=== PATIENT | male | born 1950 | race Caucasian/White ===

== ENCOUNTER 2018-08-29 06:49 | Inpatient (IN) | payer MEDICARE, OTHER, SELFPAY ==
[2018-08-29 07:39] LABS: ALT (SGPT) 25 U/L (8-55); AST (SGOT) 36 U/L (5-34); Albumin 3.2 g/dL (3.4-4.8); Alkaline Phosphatase 57 U/L (40-150); Anion Gap 16 mmol/L (10-20); BUN (Urea Nitrogen) 47 mg/dL (8.4-25.7); Bilirubin, Total 1.5 mg/dL (0.2-1.2); Calc. Creatinine Clearance 0 mL/min (70-130); Calcium 8.3 mg/dL (7.8-10.44); Carbon Dioxide 16 mmol/L (23-31); Chloride 109 mmol/L (98-107); Estimated GFR-MDRD 33; Globulin 3.7 g/dL (2.4-3.5); Glucose 138 mg/dL (80-115); Potassium 4.3 mmol/L (3.5-5.1); Protein, Total 6.9 g/dL (5.8-8.1); Sodium 137 mmol/L (136-145)
--- NOTE | 2018-08-29 07:45 | RAD ---
RADIOGRAPH CHEST 1 VIEW: DATE: 08/29/2018 TIME: 7:24 AM HISTORY: 68-year-old male with dyspnea COMPARISON: 12/04/2015 FINDINGS: Hypoinflated lungs. New finding of diffuse bilateral pulmonary interstitial edema. Central pulmonary airspace densities, possibly pulmonary alveolar edema. No pneumothorax. Probable left pleural effusion. Left lower lobe consolidation. IMPRESSION: 1. Evidence for congestive heart failure: Pulmonary edema. 2. Airspace densities at right perihilar and left base. Probably pulmonary alveolar edema. Atelectasi s versus pneumonia are the other possibilities.
[2018-08-29 07:49] LABS: #Basophils 0.1 thou/uL (0.0-0.2); #Eosinphils 0.1 thou/uL (0.0-0.7); #Lymphocytes 0.5 thou/uL (1.20-3.40); #Monocytes 0.5 thou/uL (0.11-0.59); #Neutrophils 3.8 thou/uL (1.40-6.50); %Basophils 1.1 % (0.0-1.0); %Eosinophils 1.9 % (0.0-10.0); %Monocytes 9.5 % (0.0-10.0); %Neutrophils 77.6 % (42.0-75.0); Hemoglobin 6.3 g/dL (14.0-18.0); Hypochromia SLIGHT = 6-15 cells (100X) (0-5/hpf); MDiff Complete? YES; Mean Corpuscular HGB CONC 30.1 g/dL (32.0-36.0); Mean Corpuscular Hemoglobin 20.2 pg (27.0-31.0); Mean Corpuscular Volume 67.2 fL (78.0-98.0); Mean Platelet Volume 8.1 fL (7.4-10.4); Microcytosis SLIGHT = 6-15 cells (100X) (0-5/hpf); Platelet Count 97 thou/uL (130-400); Platelet Morphology Comment Appears Decreased; RBC Distribution Width 16.1 % (11.5-14.5); Red Blood Cell (RBC) Count 3.13 mill/uL (4.70-6.10); Schistocytes SLIGHT = 2-5 cells (100X) (0-1/hpf); White Blood Cell (WBC) Count 4.9 thou/uL (4.8-10.8)
[2018-08-29] MEDS ORDERED: cefTRIAXone\\ROCEPHIN 2 GM VIAL ONE (08:03)
[2018-08-29] MEDS ORDERED: Aspirin Chewable 81 MG TAB ONE (08:04)
[2018-08-29] MEDS ORDERED: Pantoprazole 40 MG VIAL ONE (08:41)
[2018-08-29] MEDS ORDERED: Pantoprazole 40 MG VIAL IVP SCH (09:00)
[2018-08-29] MEDS ORDERED: Azithromycin 500 MG VIAL ONE (09:04)
[2018-08-29] MEDS ORDERED: Pantoprazole 80 MG in Sodium Chloride 0.9% 100 ML IVP SCH (09:15)
[2018-08-29] MEDS ORDERED: Acetaminophen 325 MG TAB PO PRN (10:26)
[2018-08-29] MEDS ORDERED: Ondansetron PF 4 MG/2 ML Vial IVP PRN ×2 (10:26→10:52)
[2018-08-29] MEDS ORDERED: Ondansetron ODT 4 MG TAB SL PRN (10:26)
[2018-08-29] MEDS ORDERED: Sodium Chloride 0.9% 1,000 ML IV SCH (10:52)
[2018-08-29] MEDS ORDERED: hydrALAZINE 20 MG/ML VIAL SLOW IVP PRN (10:52)
[2018-08-29] MEDS ORDERED: Dextrose 5% in Water 1,000 ML IV PRN (10:52)
[2018-08-29] MEDS ORDERED: Dextrose 50% Abboject 50 ML SYRINGE SLOW IVP PRN (10:52)
--- NOTE | 2018-08-29 14:01 | HP ---
PRIMARY CARE PHYSICIAN: Dr. Mendez at the [facility]. CHIEF COMPLAINT: "I'm feeling extremely weak." HISTORY OF PRESENT ILLNESS: Mr. Rico is a very pleasant 68-year-old gentleman, who has a history of hypertension and diabetes mellitus. He also has a history of chronic pancreatitis. He was in his usual state of health until a couple of days ago. He started feeling weak and short of breath all of the time. He says that he has chronic diarrhea due to chronic pancreatitis. He says that he had part of his pancreas removed after having a severe bout of pancreatitis several years ago. He says the characteristics of the diarrhea has not really changed much, other than he has some evidence of bright red blood per rectum, but no angel luis hematochezia nor has he noticed any melena. He says that he has noted some abdominal pain off and on, but none that is more different than before. He also denies any NSAID use at all. He does recall being diagnosed with an ulcer in the past, but he is not sure if it was a bleeding ulcer or not. He says he had a colonoscopy about a year ago. He believes it was at the [facility] and it was told that this was normal. When he came to our emergency room for evaluation, he was found to have a hemoglobin of 6.3, and he is being admitted for further evaluation and treatment. He was also noted to be heme-positive on stool study. REVIEW OF SYSTEMS: CONSTITUTIONAL: There has been no fevers or chills. No night sweats. No weight loss. HEENT: No headaches. No dizziness. No visual changes. No sore throat, rhinorrhea, or neck pain. No adenopathy. PULMONARY: No hemoptysis. No cough. No wheezing. CARDIOVASCULAR: There has been no chest pain. He has noted some shortness of breath and dyspnea on exertion. No PND, no orthopnea. GASTROINTESTINAL: As in the history of present illness. GENITOURINARY: No urinary frequency or hematuria. No hesitancy. MUSCULOSKELETAL: He complains of chronic numbness and pain in his feet. He attributes to peripheral neuropathy, but no other significant joint pain. SKIN AND INTEGUMENT: No skin changes. No rashes. PSYCHIATRIC: No symptoms of anxiety or depression. PAST MEDICAL HISTORY: Significant for previous Boone's palsy, diabetes mellitus type 2, gastroesophageal reflux disease, hypertension, and chronic pancreatitis. PAST SURGICAL HISTORY: He has had an appendectomy, cholecystectomy, Whipple procedure, and a pancreatectomy, and pseudocyst removal. ALLERGIES: NO KNOWN DRUG ALLERGIES. SOCIAL HISTORY: He is . He is a nonsmoker and nondrinker. He has a roommate by the name of Edwin Stewart, and she is his medical power of corrective therapy aide teacher and he would like to be a full code. FAMILY HISTORY: Significant for diabetes mellitus and his father who had cancer. CURRENT MEDICATIONS: Include, 1. Creon 24,000 units up to 1200 units twice a day. 2. . 3. Amlodipine 10 mg once daily. 4. . 5. Metoprolol 25 mg twice a day. 6. Insulin sliding scale and Novolin 70/30, 35 units twice a day. PHYSICAL EXAMINATION: GENERAL: He is alert and oriented. He appears to be in some distress. He is in mainly some discomfort. He is very pale in appearance and chronically ill appearing. VITAL SIGNS: His blood pressure is approximately 89/60, heart rate is 108, respiratory rate of 16, and he is afebrile. HEENT: Pupils are equal, round, and reactive. His conjunctivae are pale. Throat; there is no erythema, no exudates. NECK: No adenopathy. No bruits. LUNGS: Clear to auscultation. There is no wheezing, no rales, no rhonchi. CARDIOVASCULAR: He has a normal S1 and S2. There is no S3 or S4. He did have a very soft flow murmur. ABDOMEN: Soft. He has a midline abdominal scar and some irregularities there. It is nondistended. Positive for bowel sounds. There is no rebound, no guarding, no organomegaly. EXTREMITIES: He has no edema. No calf tenderness. No joint effusions. NEUROLOGIC: His cranial nerves are intact and muscle strength is intact. SKIN AND INTEGUMENT: Again, skin is pale, but there are no significant skin lesions. LABORATORY RESULTS: The white blood cell count is 4.9, hemoglobin is 6.3, hematocrit is 21, platelet count is 97. His chemistry, the sodium is 137, potassium is 4.3, chloride is 109, CO2 is 16, BUN of 47, creatinine is 2.02, glucose is 138, bilirubin is 1.5. Troponin is 1.1. Natriuretic peptide is 1871. ASSESSMENT: This is a pleasant 68-year-old male, who is being admitted for, 1. Acute or chronic anemia, likely as a result to blood loss. He will be admitted to the [facility]. We will place him on a Protonix drip. Consult Gastroenterology, and monitor his H and Hs closely and transfuse as needed. 2. Diabetes mellitus. He will be left n.p.o. for now, but we will place him on a sliding scale insulin. 3. Hypertension. Again, he will be n.p.o., and in the interim, we will be treating him with p.r.n. medications for blood pressure. Job ID: [id number]
[2018-08-29] MEDS: Pantoprazole 80 MG in Sodium Chloride 0.9% 100 ML IVP SCH (18:10)
[2018-08-29 18:12] LABS: Hemoglobin 7.8 g/dL (14.0-18.0); Platelet Count 86 thou/uL (130-400)
--- NOTE | 2018-08-29 23:36 | CON ---
DATE OF CONSULTATION: REASON FOR CONSULTATION: Symptomatic anemia, history of mild hematochezia. HISTORY OF PRESENT ILLNESS: Mr. Geoffrey Rico is a very pleasant 68-year-old male seen in the ER with history of feeling fatigue, tiredness, and feeling extremely weak. He also complains of some dyspnea over the last several days with history of palpitation off and on. He has no chest pain. The patient was found to have anemia with hemoglobin in the range of 7 g. The patient denies history of melena. History of diarrhea with loose stools for a while because of history of chronic pancreatitis. He says when he wipes after he has BM, he sees some spots of blood on the tissue paper. He has no angel luis bleeding in the commode or in the stool. The patient denies abdominal pain. There is no nausea or vomiting. The patient is known to have hypertension, diabetes mellitus. He also has iron deficiency anemia. He has been going to the [facility] in [place] for iron infusion every 3 months. Last iron fusion was about 3 months ago. The patient has had endoscopic studies in the past. He had an EGD and a colonoscopy in April 2016, and had another EGD and colonoscopy in November 2017. The initial EGD in April 2016 showed ulceration of the anastomotic area. He also had gastritis. Colonoscopy showed 2 polyps were removed. He also had hemorrhoids. He came back to see me in November 2017 because of iron deficiency anemia. He underwent EGD and showed healed anastomotic ulcer. He had gastric varices. He has had a previous partial gastrectomy with Billroth II anastomosis. There was no other pathology seen in the EGD except for a short segment of the esophagus. A colonoscopy showed in November 2017, hemorrhoids. The scope was advanced in the ileum and ileal mucosa appeared normal. The patient has had no weight loss. The patient denies alcohol abuse. The patient was hospitalized at [facility], I believe in 2017 and 2016 with altered mental status and at that time, he was found to have hepatic encephalopathy. He was told of the liver cirrhosis at that time. The patient has history of pancreatitis and pancreatic pseudocyst in the past. Therefore, underwent modified Whipple surgery with partial pancreatic resection and gastrojejunostomy. This was done probably [place]. The patient has no relevant history. MEDICAL ILLNESS: 1. Hypertension. 2. Diabetes mellitus. 3. Iron deficiency anemia. 4. Anastomotic ulcer in 2017. 5. Pancreatitis, severe and does have a partial pancreatic resection in the past. 6. Chronic pancreatitis. 7. Colon polyp in 2018. 8. Previous modified Whipple resection and cholecystectomy in the past. ALLERGIES: NONE. SOCIAL HISTORY: The patient is a former smoker. Quit smoking in 1989. He drinks alcohol, at least one drink a day 5 times a week. PAST SURGICAL HISTORY: 1. Appendectomy. 2. Cholecystectomy. 3. Status post modified Whipple resection at [facility] in [place]. 4. Colonoscopy with polypectomy. 5. EGD. FAMILY HISTORY: Father had diabetes mellitus, hypertension, hyperlipidemia. No family history of any cancer. MEDICATIONS: Reviewed. REVIEW OF SYSTEMS: Ten-point systems review: CONSTITUTIONAL: No weight loss. No fever. He has been having some dyspnea and poor exercise tolerance over the last couple of weeks. NEONATAL ICU COORDINATOR: No seizure disorder. No syncope, but has history of encephalopathy from before for liver disease and hospitalized here in 2016 and 2017. HEAD: No chronic headache. No seizure disorder. No syncope. EYES: No double vision. No impaired vision. NOSE: No nose bleeding. CHEST: No chronic coughing. No hemoptysis. No dyspnea except recently for the last several days. CARDIOVASCULAR SYSTEM: No chest pain. No palpitation. No orthopnea or PND. GI: History of chronic diarrhea. History of mild rectal bleeding on the tissue paper. : No dysuria, hematuria, or frequency. MUSCULOSKELETAL/NEUROPSYCHIATRY: Unknown. PHYSICAL EXAMINATION: GENERAL: The patient appears comfortable, but he is mildly short of breath. He is in no distress except for mild dyspnea. VITAL SIGNS: His pulse is 78 and blood pressure is 100/60. HEENT: Conjunctivae clear. NECK: Supple. No lymphadenitis or thyromegaly noted. CARDIOVASCULAR SYSTEM: First and second heart sounds heard. LUNGS: Clear to auscultation. ABDOMEN: Soft. Abdomen is nondistended. Abdomen is nontender. There is no organomegaly or masses. Bowel sounds are normal. EXTREMITIES: Reveal no edema. CENTRAL NERVOUS SYSTEM: Oriented to time, place, and person. He exhibits no sign of encephalopathy. LABORATORY DATA: WBC 4900, hemoglobin 6.3, hematocrit 21, platelet count 97,000. Sodium 137, potassium 4.3, chloride 109, bicarb 16, BUN is 47, creatinine 2.2, glucose 138, bilirubin 1.5 mg percent. Troponin 1.1. BNP 1871. CLINICAL IMPRESSION: A 68-year-old male with anemia, which is acute on chronic. The patient had anemia before. He has been going to [facility] in [place] for intermittent iron infusion. He has had these every 3 months. He missed his last dose 3 months ago. The last dose was sometime in January. 1. Mild hematochezia does not explain his anemia. 2. Diabetes mellitus. 3. Hypertension. 4. Recent onset of dyspnea with high BNP, not sure he is in the onset of heart failure. 5. Pancreatitis, status post modified Whipple resection in [place]. 6. Cholecystectomy. 7. History of liver cirrhosis and also gastric varices by endoscopy in November 2017. RECOMMENDATION: 1. Follow up H and H. 2. Transfuse if blood count continues to fall down. 3. Consider Cardiology evaluation because of dyspnea and very high BNP. I will see the patient again tomorrow morning and if he is stable enough, I will prefer an EGD tomorrow. Job ID: [id number]
[2018-08-30] MEDS: Pantoprazole 80 MG in Sodium Chloride 0.9% 100 ML IVP SCH (03:40)
[2018-08-30 05:41] LABS: Anion Gap 13 mmol/L (10-20); BUN (Urea Nitrogen) 47 mg/dL (8.4-25.7); Calc. Creatinine Clearance 42 mL/min (70-130); Carbon Dioxide 16 mmol/L (23-31); Chloride 113 mmol/L (98-107); Estimated GFR-MDRD 39; Glucose 137 mg/dL (80-115); Potassium 4.3 mmol/L (3.5-5.1); Sodium 138 mmol/L (136-145)
[2018-08-30 06:18] LABS: #Basophils 0.1 thou/uL (0.0-0.2); #Lymphocytes 0.4 thou/uL (1.20-3.40); #Monocytes 0.5 thou/uL (0.11-0.59); #Neutrophils 4.7 thou/uL (1.40-6.50); %Basophils 0.9 % (0.0-1.0); %Eosinophils 0.6 % (0.0-10.0); %Lymphocytes 6.5 % (21.0-51.0); Anisocytosis SLIGHT = 6-15 cells (100X) (0-5/hpf); Hypochromia SLIGHT = 6-15 cells (100X) (0-5/hpf); MDiff Complete? YES; Mean Corpuscular HGB CONC 30.1 g/dL (32.0-36.0); Mean Corpuscular Hemoglobin 21.2 pg (27.0-31.0); Mean Corpuscular Volume 70.4 fL (78.0-98.0); Mean Platelet Volume 8.1 fL (7.4-10.4); Microcytosis SLIGHT = 6-15 cells (100X) (0-5/hpf); Platelet Count 75 thou/uL (130-400); Platelet Morphology Comment Appears Decreased; Polychromasia SLIGHT = 2-3 cells (100X) (0-2/hpf); RBC Distribution Width 18.2 % (11.5-14.5); Schistocytes SLIGHT = 2-5 cells (100X) (0-1/hpf); White Blood Cell (WBC) Count 5.7 thou/uL (4.8-10.8)
[2018-08-30 09:34] LABS: Troponin I 1.807 ng/mL (< 0.028)
--- NOTE | 2018-08-30 09:46 | CON ---
DATE OF CONSULTATION: HISTORY OF PRESENT ILLNESS: The patient is a 68-year-old gentleman who presents for evaluation of weakness. The patient has a history of chronic anemia. He has a previous history of cirrhosis with severe varicosities. The patient presented with marked weakness. He has not been undergoing iron transfusion. The patient also reports dyspnea on exertion. The patient denies having any chest discomfort. PAST MEDICAL HISTORY: 1. Diabetes mellitus. 2. Hypertension. 3. Chronic anemia. 4. Esophageal varices. 5. Chronic pancreatitis. PAST SURGICAL HISTORY: 1. Appendectomy. 2. Cholecystectomy. 3. Whipple surgery. 4. Pancreatectomy. SOCIAL HISTORY: Nonsmoker. MEDICATIONS: See nursing list. FAMILY HISTORY: Positive family history of heart disease. ALLERGIES: NO KNOWN DRUG ALLERGIES. PHYSICAL EXAMINATION: GENERAL: This is a pale gentleman, in no acute distress with a blood pressure of 118/69. NECK: Showed no jugular venous distention. LUNGS: Have few crackles in both bases. HEART: Regular rate and rhythm. Normal S1 and S2. 2/6 systolic murmur. ABDOMEN: Nondistended. EXTREMITIES: Showed trace edema. VASCULAR: Radial pulses 2+. LABORATORY DATA: Sodium is 138, potassium 4.3, chloride 113, bicarbonate 16, BUN 47, creatinine 1.74, and glucose is 137. White blood cell count 5.7, hemoglobin 7.0, hematocrit 23.2, and his platelets are 75. His troponin was 1.17. IMAGING STUDIES: His EKG revealed him to have normal sinus rhythm with nonspecific ST-T wave abnormality. IMPRESSION: 1. Weakness. 2. Non-Q-wave myocardial infarction. 3. Cardiomyopathy. 4. Severe anemia. 5. Cirrhosis. 6. Hypertension. PLAN: This gentleman has evidence of congestive heart failure. An echocardiogram was obtained, which revealed marked apical hypokinesis. From a cardiac standpoint, we will start the patient on Coreg. The patient is being transfused. He would not be an appropriate patient for an invasive evaluation. Because of his chronic anemia, to be on anti-platelet medication. We would recommend transfusing the patient. We will discuss the options with the patient once he is more clinically stable. We will follow this patient with you through his hospitalization. Job ID: [id number] [facility]
--- NOTE | 2018-08-30 15:57 | CON ---
DATE OF CONSULTATION: HISTORY OF PRESENT ILLNESS: Mr. Rico is a 68-year-old male, follows with OR, has chronic pancreatitis. He has not been taking his iron infusions admittedly as he has been instructed. He presented with severe anemia. He is admitted to the immediate care unit. PAST MEDICAL HISTORY: Remarkable for: 1. Hypertension, diabetes, history of ulcer disease, history of partial pancreatic resection in the past. 2. History of chronic pancreatitis. 3. History of colon polyp. 4. History of modified Whipple. 5. History of cholecystectomy. SOCIAL HISTORY: Nonsmoker. Does not drink. ALLERGIES: IN SPITE OF HIS PANCREATITIS, HE HAS NO ALLERGIES. FAMILY HISTORY: Positive for diabetes, hypertension, and lipid disorder. Negative for lung disease in early age. REVIEW OF SYSTEMS: Ten points otherwise negative. He says he feels fine. He wants to go home. PHYSICAL EXAMINATION: VITAL SIGNS: Heart rate 85, blood pressure 111/62, respiratory rate is 20, and oximetry is 100% on room air. GENERAL: He is in no distress. He is quite pale. HEENT: Pupils are equal. Sclerae are anicteric. NECK: Supple. No lymphadenopathy. LUNGS: Clear. HEART: Regular rhythm. ABDOMEN: Soft with minimal epigastric tenderness. EXTREMITIES: Without clubbing, cyanosis, or edema. NEUROLOGIC: Nonfocal. LABORATORY DATA: White count 5.7, hemoglobin 7.0 and 6.3 yesterday. Electrolytes; sodium 138, potassium 4.3 chloride 113, bicarb 16, BUN 47, and creatinine 1.74. IMPRESSION: 1. Chronic pancreatitis. 2. Iron-deficiency anemia with noncompliance with iron infusions. 3. History of congestive heart failure. Chest radiograph reviewed by me shows evidence of pulmonary edema. He looks much better, then his radiograph would suggest. 4. History of partial pancreatic resection and a modified Whipple procedure. 5. History of esophageal varices and cirrhosis. PLAN: At this time, he is clinically stable in the intermediate care unit. He is a high-risk patient for hospital complications with any admission given his multiple medical and multiple organ problems. We will follow the other physicians caring for. Job ID: [id number]
--- NOTE | 2018-08-30 17:17 | PDOC.PN ---
- Subjective Encounter Start Date: 08/30/18 Encounter Start Time: 17:15 Mr. Deal was seen today in follow-up of severe anemia. He says he feels better today. He also is breathing better, and is les short of breath. - Objective Resuscitation Status - Order Detail: 08/29/18 09:53 Resuscitation Status Routine Resuscitation Status: FULL: Full Resuscitation MAR Reviewed: Yes Vital Signs & Weight: Vital Signs (12 hours) Temp Pulse Ox 08/30/18 15:21 97.9 F 08/30/18 11:27 98.0 F 08/30/18 07:31 98.8 F 08/30/18 07:27 94 L Weight Weight 157 lb 3.2 oz Most Recent Monitor Data Heart Rate from ECG 79 NIBP 125/68 NIBP BP-Mean 87 Respiration from ECG 19 SpO2 98 I&O: 08/29/18 08/30/18 08/31/18 06:59 06:59 06:59 Intake Total 1039.8 Output Total 950 Balance 89.8 Result Diagrams: 08/30/18 05:10 08/30/18 05:10 Additional Labs: Accuchecks 08/30/18 08/30/18 08/29/18 16:45 10:35 18:12 POC Glucose 192 H 149 H 164 H Phys Exam - Physical Examination HEENT: PERRLA Respiratory: no wheezing, no rales, no rhonchi Cardiovascular: RRR, no significant murmur, no rub Gastrointestinal: soft, non-tender, no distention, positive bowel sounds Musculoskeletal: no edema, pulses present Dx/Plan (1) GI bleed Code(s): K92.2 - GASTROINTESTINAL HEMORRHAGE, UNSPECIFIED Status: Acute (2) Acute blood loss anemia Code(s): D62 - ACUTE POSTHEMORRHAGIC ANEMIA Status: Acute (3) Cardiomyopathy Code(s): I42.9 - CARDIOMYOPATHY, UNSPECIFIED Status: Acute (4) Diabetes Code(s): E11.9 - TYPE 2 DIABETES MELLITUS WITHOUT COMPLICATIONS Status: Chronic Qualifiers: Diabetes mellitus type: type 2 Diabetes mellitus complication status: with neurologic complications (5) Hypertension Code(s): I10 - ESSENTIAL (PRIMARY) HYPERTENSION Status: Chronic Qualifiers: Hypertension type: essential hypertension Qualified Code(s): I10 - Essential (primary) hypertension - Plan * Acute on chronic anemia- blood loss- patient was not felt to be a good candidate for anesthesia for EGD, and therefore it was not done * His H&H has improved after transfusion * CHF- awaiting the final Echo report- he has been started on Carvediolol by Cardiology * DM- blood glucose is stable * HTN- blood pressure is beginning to rebound -Will reconcile and restart home medications.
[2018-08-30] MEDS: Pantoprazole 80 MG in Sodium Chloride 0.9% 100 ML IVPB SCH (17:27)
[2018-08-30] MEDS: Carvedilol 6.25 MG TAB PO SCH (17:27)
[2018-08-30] MEDS: Atorvastatin Calcium 40 MG TAB PO SCH (20:32)
[2018-08-30] MEDS: Gabapentin 400 MG CAP PO SCH (20:32)
[2018-08-30] MEDS ORDERED: Metoprolol Tartrate 25 MG TAB PO SCH (21:00)
[2018-08-30] MEDS: HumuLIN 70/30 (300 UNITS/3 ML VIAL) SC SCH (21:26)
[2018-08-31] MEDS: Pantoprazole 80 MG in Sodium Chloride 0.9% 100 ML IVPB SCH ×3 (03:32→23:31)
[2018-08-31 04:47] LABS: Anion Gap 10 mmol/L (10-20); BUN (Urea Nitrogen) 43 mg/dL (8.4-25.7); Calc. Creatinine Clearance 47 mL/min (70-130); Carbon Dioxide 20 mmol/L (23-31); Chloride 113 mmol/L (98-107); Estimated GFR-MDRD 45; Glucose 177 mg/dL (80-115); Potassium 4.3 mmol/L (3.5-5.1); Sodium 139 mmol/L (136-145)
[2018-08-31 05:15] LABS: #Eosinphils 0.1 thou/uL (0.0-0.7); #Lymphocytes 0.4 thou/uL (1.20-3.40); #Monocytes 0.5 thou/uL (0.11-0.59); #Neutrophils 2.7 thou/uL (1.40-6.50); %Basophils 0.5 % (0.0-1.0); %Eosinophils 1.8 % (0.0-10.0); %Lymphocytes 11.9 % (21.0-51.0); %Monocytes 12.4 % (0.0-10.0); %Neutrophils 73.4 % (42.0-75.0); Anisocytosis SLIGHT = 6-15 cells (100X) (0-5/hpf); Elliptocytes SLIGHT = 2-5 cells (100X) (0-1/hpf); Hemoglobin 6.6 g/dL (14.0-18.0); Hypochromia SLIGHT = 6-15 cells (100X) (0-5/hpf); MDiff Complete? YES; Mean Corpuscular HGB CONC 30.4 g/dL (32.0-36.0); Mean Corpuscular Hemoglobin 21.4 pg (27.0-31.0); Mean Corpuscular Volume 70.5 fL (78.0-98.0); Mean Platelet Volume 8.8 fL (7.4-10.4); Microcytosis SLIGHT = 6-15 cells (100X) (0-5/hpf); Platelet Count 77 thou/uL (130-400); Platelet Morphology Comment Appears Decreased; RBC Distribution Width 18.4 % (11.5-14.5); Red Blood Cell (RBC) Count 3.06 mill/uL (4.70-6.10); White Blood Cell (WBC) Count 3.6 thou/uL (4.8-10.8)
[2018-08-31] MEDS: Gabapentin 300 MG CAP PO SCH (09:25)
[2018-08-31] MEDS: HumuLIN 70/30 (300 UNITS/3 ML VIAL) SC SCH ×2 (09:26→20:06)
[2018-08-31] MEDS ORDERED: Furosemide 40 MG/4 ML VIAL SLOW IVP SCH (09:45)
[2018-08-31] MEDS ORDERED: Spironolactone 25 MG TAB PO SCH ×2 (09:45→12:00)
--- NOTE | 2018-08-31 10:20 | PRG ---
DATE OF SERVICE: 08/31/2018 SUBJECTIVE: Mr. Rico has no new complaints. OBJECTIVE: VITAL SIGNS: He is afebrile, heart rate is in the 70s, blood pressure is 104/57, respiratory rate 16, and oximetry is 98% on room air. LUNGS: Clear. HEART: Regular rhythm. ABDOMEN: Soft. LABORATORY DATA: Hemoglobin was 6.6 today. He still looks pale. Sodium 139, potassium 4.3, chloride 113, bicarb 20, BUN 43, and creatinine 1.55. IMPRESSION AND PLAN: Mixed anemia of chronic disease and severe iron deficiency. Needs to be transfused more today. Job ID: [id number]
--- NOTE | 2018-08-31 11:19 | PRG ---
DATE OF SERVICE: 08/30/2018 SUBJECTIVE: This is a 68-year-old male, hospitalized with dyspnea, anemia, occult GI bleeding. The patient's BNP was more than 1800. He was seen by Cardiology, and Cardiology's opinion was he has non-Q-wave myocardial infarction and also poor LV function. After echocardiogram done, it shows poor cardiac function with low ejection fraction_ as per Dr. Nixon's consultation. The plan was for an EGD today, which I went and cancelled because of poor cardiac function. He is little better compared to yesterday. He is less short winded. He had no chest pain. No difficulty breathing. He has been transfused yesterday. PHYSICAL EXAMINATION: VITAL SIGNS: Heart rate is 85, blood pressure 121/69. CARDIOVASCULAR: First and second heart sounds are normal. LUNGS: Few basilar rales. ABDOMEN: Soft. No organomegaly. No tenderness. No masses. LABORATORY DATA: From today CBC; WBC 5700, hemoglobin 7 yesterday, today hemoglobin dropped to 7, hematocrit to 23.2, MCV 70.4. His Chem-7 today is normal except BUN of 47, creatinine is 1.74. IMPRESSION: 1. Non-Q-wave myocardial infarction, poor LV function. 2. Congestive heart failure. 3. Anemia due to blood loss, but he has had no melenic stool since admission. He has had 3 EGDs in the past. He does have gastric varix and a small esophageal varix. He also had an ulcer in the past. PLAN: 1. Transfuse p.r.n. 2. IV PPI. 3. We will call off the EGD until his cardiac function improves. In the meantime, we would do serial hemoglobin and hematocrit and transfuse as necessary. Job ID: [id number] [facility]
--- NOTE | 2018-08-31 12:12 | PDOC.PN ---
- Subjective Encounter Start Date: 08/31/18 Encounter Start Time: 12:12 - Objective Resuscitation Status - Order Detail: 08/29/18 09:53 Resuscitation Status Routine Resuscitation Status: FULL: Full Resuscitation Vital Signs & Weight: Vital Signs (12 hours) Temp 08/31/18 11:13 97.9 F 08/31/18 07:00 98.5 F 08/31/18 03:00 98.4 F Weight Weight 158 lb 3.2 oz Most Recent Monitor Data Heart Rate from ECG 86 NIBP 118/65 NIBP BP-Mean 82 Respiration from ECG 18 SpO2 100 I&O: 08/30/18 08/31/18 09/01/18 06:59 06:59 06:59 Intake Total 1039.8 1140 600 Output Total 950 Balance 89.8 1140 600 Result Diagrams: 08/31/18 04:08 08/31/18 04:08 Additional Labs: Accuchecks 08/31/18 08/31/18 08/30/18 11:50 05:39 20:36 POC Glucose 239 H 187 H 249 H 08/30/18 08/30/18 08/30/18 16:45 06:02 01:23 POC Glucose 192 H 161 H 157 H Dx/Plan (1) GI bleed Code(s): K92.2 - GASTROINTESTINAL HEMORRHAGE, UNSPECIFIED Status: Acute (2) Acute blood loss anemia Code(s): D62 - ACUTE POSTHEMORRHAGIC ANEMIA Status: Acute (3) Cardiomyopathy Code(s): I42.9 - CARDIOMYOPATHY, UNSPECIFIED Status: Acute (4) Diabetes Code(s): E11.9 - TYPE 2 DIABETES MELLITUS WITHOUT COMPLICATIONS Status: Chronic Qualifiers: Diabetes mellitus type: type 2 Diabetes mellitus complication status: with neurologic complications (5) Hypertension Code(s): I10 - ESSENTIAL (PRIMARY) HYPERTENSION Status: Chronic Qualifiers: Hypertension type: essential hypertension Qualified Code(s): I10 - Essential (primary) hypertension - Plan * .
--- NOTE | 2018-08-31 12:47 | PDOC.PN ---
- Subjective Encounter Start Date: 08/31/18 Encounter Start Time: 12:45 Mr. Rico was seen today in follow-up of severe anemia. He does not have any new complaints. - Objective Resuscitation Status - Order Detail: 08/29/18 09:53 Resuscitation Status Routine Resuscitation Status: FULL: Full Resuscitation MAR Reviewed: Yes Vital Signs & Weight: Vital Signs (12 hours) Temp Pulse Ox 08/31/18 11:13 97.9 F 08/31/18 08:00 94 L 08/31/18 07:00 98.5 F 08/31/18 03:00 98.4 F Weight Weight 158 lb 3.2 oz Most Recent Monitor Data Heart Rate from ECG 86 NIBP 118/65 NIBP BP-Mean 82 Respiration from ECG 18 SpO2 100 I&O: 08/30/18 08/31/18 09/01/18 06:59 06:59 06:59 Intake Total 1039.8 1140 600 Output Total 950 Balance 89.8 1140 600 Result Diagrams: 08/31/18 04:08 08/31/18 04:08 Additional Labs: Accuchecks 08/31/18 08/31/18 08/30/18 11:50 05:39 20:36 POC Glucose 239 H 187 H 249 H 08/30/18 08/30/18 08/30/18 16:45 06:02 01:23 POC Glucose 192 H 161 H 157 H Phys Exam - Physical Examination HEENT: PERRLA Respiratory: no wheezing, no rales, no rhonchi, clear to auscultation bilateral Cardiovascular: RRR 3/6 systolic murmur in upper left sternal border Gastrointestinal: soft, non-tender, no distention, positive bowel sounds Musculoskeletal: no edema, pulses present Dx/Plan (1) GI bleed Code(s): K92.2 - GASTROINTESTINAL HEMORRHAGE, UNSPECIFIED Status: Acute (2) Acute blood loss anemia Code(s): D62 - ACUTE POSTHEMORRHAGIC ANEMIA Status: Acute (3) Cardiomyopathy Code(s): I42.9 - CARDIOMYOPATHY, UNSPECIFIED Status: Acute (4) Diabetes Code(s): E11.9 - TYPE 2 DIABETES MELLITUS WITHOUT COMPLICATIONS Status: Chronic Qualifiers: Diabetes mellitus type: type 2 Diabetes mellitus complication status: with neurologic complications (5) Hypertension Code(s): I10 - ESSENTIAL (PRIMARY) HYPERTENSION Status: Chronic Qualifiers: Hypertension type: essential hypertension Qualified Code(s): I10 - Essential (primary) hypertension - Plan * Acute on chronic anemia from iron deficiency and nutritional deficiency from chronic pancreatic disease- his H&H has dropped to 6.6. He is being transfused. * Will defer to GI any additional work-up. Continue Protonix drip * Cardiomyopathy- Echo report is not yet visible, but I am told he has a low EF - continue as per Cardiology recommendations ( Carvediolol, Lasix and Aldactone * DM- blood glucose is stable * HTN- blood pressure is recovering
[2018-08-31] MEDS: Carvedilol 6.25 MG TAB PO SCH ×2 (17:13→17:14)
[2018-08-31] MEDS: HumaLOG 300 UNITS/3 ML VIAL SC PRN ×2 (17:17→20:12)
[2018-08-31] MEDS: Atorvastatin Calcium 40 MG TAB PO SCH (20:06)
[2018-08-31] MEDS: Gabapentin 400 MG CAP PO SCH (20:06)
--- NOTE | 2018-08-31 20:41 | PRG ---
DATE OF SERVICE: 08/31/2018 SUBJECTIVE: Geoffrey Rico is a 68-year-old male, hospitalized over the weekend with dyspnea and evidence of heart failure. His BNP was more than 1800. He also has had a positive stool guaiac. The plan was for EGD yesterday, but because of heart disease and heart failure, it was decided to hold the EGD. He has received a unit of packed RBC today. He is getting better. He has no abdominal pain. No nausea. No vomiting. PHYSICAL EXAMINATION: VITAL SIGNS: Pulse rate is 76, blood pressure 114/73. HEENT: Conjunctivae clear. CARDIOVASCULAR: First and second heart sounds normal. LUNGS: Clear to auscultation. ABDOMEN: Soft. No organomegaly. No tenderness. LABORATORY DATA: From today, WBC 3600, hemoglobin 6.6, hematocrit 28.6, platelets 77,000. BUN is 43, creatinine is 1.55. Lytes are normal. RECOMMENDATIONS: 1. Continue diuretics, symptomatic treatment. 2. Transfuse p.r.n. 3. We will defer endoscopic studies until cardiac status stabilized. Job ID: [id number]
--- NOTE | 2018-09-01 08:40 | RAD ---
ONE VIEW CHEST: HISTORY: Congestive heart failure. COMPARISON: 08/29/2018 FINDINGS: Persistent cardiomegaly. There are bilateral pleural effusions with associated interstitial and alve olar opacities. Worsening opacification in the left hemithorax. Slightly improved aeration in the r ight hemithorax. IMPRESSION: Congestive heart failure. POS: MINDY
[2018-09-01] MEDS: Carvedilol 6.25 MG TAB PO SCH ×2 (10:19→18:00)
[2018-09-01] MEDS: Spironolactone 25 MG TAB PO SCH (10:20)
[2018-09-01] MEDS: Gabapentin 300 MG CAP PO SCH (10:21)
[2018-09-01] MEDS: HumuLIN 70/30 (300 UNITS/3 ML VIAL) SC SCH ×2 (10:22→20:50)
[2018-09-01] MEDS: Pantoprazole 80 MG in Sodium Chloride 0.9% 100 ML IVPB SCH ×2 (12:50→21:59)
[2018-09-01] MEDS: HumaLOG 300 UNITS/3 ML VIAL SC PRN ×2 (12:53→18:09)
--- NOTE | 2018-09-01 15:36 | PDOC.PN ---
- Subjective Encounter Start Date: 09/01/18 Encounter Start Time: 15:34 Subjective: Admitted with mild BRBPR associated with SOB and weakness. -: Feeling better. -: S/p 2 PRBC. - Objective Resuscitation Status - Order Detail: 08/29/18 09:53 Resuscitation Status Routine Resuscitation Status: FULL: Full Resuscitation Vital Signs & Weight: Vital Signs (12 hours) Temp BP Pulse Ox 09/01/18 11:03 96.8 F L 09/01/18 10:19 110/63 09/01/18 07:52 100 09/01/18 07:33 96.4 F L 09/01/18 04:00 97.7 F Weight Weight 155 lb 5 oz Most Recent Monitor Data Heart Rate from ECG 86 NIBP 107/66 NIBP BP-Mean 79 Respiration from ECG 19 SpO2 100 I&O: 08/31/18 09/01/18 09/02/18 06:59 06:59 06:59 Intake Total 1140 3090 240 Balance 1140 3090 240 Result Diagrams: 08/31/18 04:08 08/31/18 04:08 Additional Labs: Accuchecks 09/01/18 09/01/18 08/31/18 10:28 05:47 20:10 POC Glucose 228 H 70 308 H 08/31/18 16:07 POC Glucose 273 H Phys Exam - Physical Examination Constitutional: NAD chronically ill looking HEENT: PERRLA, moist MMs Neck: no JVD, supple Respiratory: no rales, no rhonchi fair air entry bilaterally Cardiovascular: RRR soft systolic murmur noted Gastrointestinal: soft, non-tender, no distention, positive bowel sounds Musculoskeletal: no edema, pulses present Neurological: non-focal, moves all 4 limbs Psychiatric: normal affect, A&O x 3 Dx/Plan (1) Acute on chronic blood loss anemia Code(s): D62 - ACUTE POSTHEMORRHAGIC ANEMIA Status: Acute (2) Iron deficiency Code(s): E61.1 - IRON DEFICIENCY Status: Acute (3) Cirrhosis Code(s): K74.60 - UNSPECIFIED CIRRHOSIS OF LIVER Status: Acute (4) Cardiomyopathy Code(s): I42.9 - CARDIOMYOPATHY, UNSPECIFIED Status: Acute (5) GI bleed Code(s): K92.2 - GASTROINTESTINAL HEMORRHAGE, UNSPECIFIED Status: Acute (6) Diabetes Code(s): E11.9 - TYPE 2 DIABETES MELLITUS WITHOUT COMPLICATIONS Status: Chronic Qualifiers: Diabetes mellitus type: type 2 Diabetes mellitus complication status: with neurologic complications (7) Acute non-ST elevation myocardial infarction (NSTEMI) Code(s): I21.4 - NON-ST ELEVATION (NSTEMI) MYOCARDIAL INFARCTION Status: Acute (8) Acute systolic (congestive) heart failure Code(s): I50.21 - ACUTE SYSTOLIC (CONGESTIVE) HEART FAILURE Status: Acute (9) SHAQUILLE (acute kidney injury) Code(s): N17.9 - ACUTE KIDNEY FAILURE, UNSPECIFIED Status: Acute - Plan Monitor h/H and transfuse as needed -: check iron chemistry in the am and replete as needed -: Continue PPI. -: EGD contemplated when stable. -: Monitor renal function. * .
--- NOTE | 2018-09-01 16:19 | PRG ---
DATE OF SERVICE: 09/01/2018 SUBJECTIVE: Geoffrey Rico says he is feeling better. OBJECTIVE: GENERAL: He is in no distress. VITAL SIGNS: He is afebrile. Heart rate is 86, respiratory rate is 18, blood pressure 107/66. LUNGS: Remarkable for fine crackles at the bases. HEART: Regular rhythm. ABDOMEN: Soft. LABORATORY DATA: No lab today other than glucoses. IMPRESSION: 1. Mixed anemia, probably blood loss combined with severe iron deficiency anemia as well as nutritional anemia. 2. Congestive heart failure with bilateral pleural effusions and pulmonary edema. His fluid intake and outputs are not accurate. There was 3090 reported in yesterday and no output recorded. He needs to be diuresed as long as the blood pressure tolerates it. Hemoglobin and hematocrit have been ordered for tomorrow. Job ID: [id number]
[2018-09-01 17:14] LABS: Anisocytosis SLIGHT = 6-15 cells (100X) (0-5/hpf); Band 8 % (5-11); Elliptocytes SLIGHT = 2-5 cells (100X) (0-1/hpf); Hemoglobin 7.7 g/dL (14.0-18.0); Hypochromia SLIGHT = 6-15 cells (100X) (0-5/hpf); Lymphocytes 18 % (21-51); MDiff Complete? YES; Mean Corpuscular HGB CONC 29.1 g/dL (32.0-36.0); Mean Corpuscular Hemoglobin 21.3 pg (27.0-31.0); Mean Platelet Volume 8.1 fL (7.4-10.4); Microcytosis SLIGHT = 6-15 cells (100X) (0-5/hpf); Monocytes 3 % (0-10); Neutrophil 71 % (42-75); Platelet Count 81 thou/uL (130-400); Platelet Morphology Comment Appears Decreased; Poikilocytosis SLIGHT = 6-15 cells (100X) (0-5/hpf); RBC Distribution Width 19.5 % (11.5-14.5); Red Blood Cell (RBC) Count 3.62 mill/uL (4.70-6.10); Tear Drops SLIGHT = 2-5 cells (100X) (0-1/hpf)
[2018-09-01] MEDS: Atorvastatin Calcium 40 MG TAB PO SCH (20:50)
[2018-09-01] MEDS: Gabapentin 400 MG CAP PO SCH (20:50)
[2018-09-02] MEDS: HumaLOG 300 UNITS/3 ML VIAL SC PRN ×3 (00:02→18:23)
[2018-09-02 05:04] LABS: Anion Gap 9 mmol/L (10-20); BUN (Urea Nitrogen) 31 mg/dL (8.4-25.7); Calc. Creatinine Clearance 59 mL/min (70-130); Carbon Dioxide 23 mmol/L (23-31); Chloride 110 mmol/L (98-107); Estimated GFR-MDRD 60; Glucose 164 mg/dL (80-115); Iron 14 ug/dL (65-175); Iron Binding Capacity, Total 275 mcg/dL (261-462); Potassium 4.2 mmol/L (3.5-5.1); Sodium 138 mmol/L (136-145)
[2018-09-02 05:05] LABS: Anisocytosis SLIGHT = 6-15 cells (100X) (0-5/hpf); Band 3 % (5-11); Elliptocytes SLIGHT = 2-5 cells (100X) (0-1/hpf); Eosinophils 3 % (0-10); Hemoglobin 7.2 g/dL (14.0-18.0); Lymphocytes 10 % (21-51); MDiff Complete? YES; Mean Corpuscular HGB CONC 29.8 g/dL (32.0-36.0); Mean Corpuscular Hemoglobin 21.5 pg (27.0-31.0); Mean Corpuscular Volume 72.1 fL (78.0-98.0); Mean Platelet Volume 7.8 fL (7.4-10.4); Monocytes 7 % (0-10); Neutrophil 76 % (42-75); Platelet Count 72 thou/uL (130-400); Platelet Morphology Comment Appears Decreased; RBC Distribution Width 19.3 % (11.5-14.5); Red Blood Cell (RBC) Count 3.34 mill/uL (4.70-6.10); Schistocytes SLIGHT = 2-5 cells (100X) (0-1/hpf); Tear Drops SLIGHT = 2-5 cells (100X) (0-1/hpf)
[2018-09-02] MEDS: HumuLIN 70/30 (300 UNITS/3 ML VIAL) SC SCH ×2 (09:23→20:43)
[2018-09-02] MEDS: Spironolactone 25 MG TAB PO SCH (09:24)
[2018-09-02] MEDS: Gabapentin 300 MG CAP PO SCH (09:24)
[2018-09-02] MEDS: Carvedilol 6.25 MG TAB PO SCH ×3 (09:24→20:45)
--- NOTE | 2018-09-02 09:55 | PRG ---
DATE OF SERVICE: 09/01/2018 HISTORY: This is a 68-year-old male, hospitalized because of anemia, occult GI bleeding, and also progressive dyspnea. He was seen by Cardiology and was found to have cardiomyopathy with low ejection fraction. The patient Clinically he appears better and he is not short of breath anymore much better. No chest pain. No palpitation. No dyspnea. Blood count is hanging around 7.7, hematocrit 26.4. The patient tells me he has been having IV infusion at [facility] every 3 to 6 months. He was told by doctors in the [facility] that his body is losing iron and he was given IV iron infusion. His last infusion was 3 months ago. He offers no complaints. PHYSICAL EXAMINATION: GENERAL: Appears comfortable. VITAL SIGNS: Stable. Pulse is 7, blood pressure 100/58. CARDIOVASCULAR SYSTEM/LUNGS: Within normal limits. ABDOMEN: Soft. No organomegaly. No tenderness. No masses. Bowel sounds normal. CLINICAL IMPRESSION: 1. Anemia, still lower at 7.7. No active bleeding seen. 2. Status post partial gastrectomy with Billroth II anastomosis in the past. 3. Gastric varices documented in his previous EGD. 4. Cardiomyopathy with congestive heart failure. RECOMMENDATIONS: 1. Continue to follow H and H. 2. We will defer any other surgeries for the time being. 3. May consider intravenous iron infusion . Job ID: [id number] [facility]
[2018-09-02] MEDS ORDERED: Furosemide 40 MG/4 ML VIAL SLOW IVP SCH (12:00)
[2018-09-02] MEDS: Iron, Sodium Ferric Gluconate 250 MG in Sodium Chloride 0.9% 100 ML IVPB SCH ×2 (13:55→20:41)
--- NOTE | 2018-09-02 14:27 | PDOC.PN ---
- Subjective Encounter Start Date: 09/02/18 Encounter Start Time: 14:26 Subjective: Feeling better and stronger. Denied further black stool and chest pain. - Objective Resuscitation Status - Order Detail: 08/29/18 09:53 Resuscitation Status Routine Resuscitation Status: FULL: Full Resuscitation Vital Signs & Weight: Vital Signs (12 hours) Temp Pulse Resp BP BP Pulse Ox 09/02/18 13:15 98.4 F 92 20 110/63 97 09/02/18 10:21 97.6 F 09/02/18 09:24 100/58 L 09/02/18 08:00 99 09/02/18 07:29 97.7 F 09/02/18 03:34 97.6 F Weight Weight 155 lb 5 oz Most Recent Monitor Data Heart Rate from ECG 80 NIBP 105/57 NIBP BP-Mean 73 Respiration from ECG 7 SpO2 98 I&O: 09/01/18 09/02/18 09/03/18 06:59 06:59 06:59 Intake Total 3090 2100 Output Total 1725 Balance 3090 375 Result Diagrams: 09/02/18 04:15 09/02/18 04:15 Additional Labs: Accuchecks 09/02/18 09/02/18 09/01/18 11:45 05:48 23:57 POC Glucose 206 H 153 H 287 H 09/01/18 18:00 POC Glucose 301 H Phys Exam - Physical Examination Constitutional: NAD HEENT: PERRLA, moist MMs Neck: no nodes, no JVD Respiratory: no wheezing, no rales, no rhonchi, clear to auscultation bilateral Cardiovascular: RRR systolic murmur noted Gastrointestinal: soft, non-tender, no distention, positive bowel sounds Musculoskeletal: no edema, pulses present Neurological: non-focal, moves all 4 limbs Psychiatric: A&O x 3 Dx/Plan (1) Acute on chronic blood loss anemia Code(s): D62 - ACUTE POSTHEMORRHAGIC ANEMIA Status: Acute (2) Iron deficiency Code(s): E61.1 - IRON DEFICIENCY Status: Acute Comment: Severe. From chronic blood loss and poor absorption related to abdominal surgeries. (3) Cirrhosis Code(s): K74.60 - UNSPECIFIED CIRRHOSIS OF LIVER Status: Acute (4) Cardiomyopathy Code(s): I42.9 - CARDIOMYOPATHY, UNSPECIFIED Status: Acute (5) GI bleed Code(s): K92.2 - GASTROINTESTINAL HEMORRHAGE, UNSPECIFIED Status: Acute (6) Diabetes Code(s): E11.9 - TYPE 2 DIABETES MELLITUS WITHOUT COMPLICATIONS Status: Chronic Qualifiers: Diabetes mellitus type: type 2 Diabetes mellitus complication status: with neurologic complications (7) Acute non-ST elevation myocardial infarction (NSTEMI) Code(s): I21.4 - NON-ST ELEVATION (NSTEMI) MYOCARDIAL INFARCTION Status: Acute (8) Acute systolic (congestive) heart failure Code(s): I50.21 - ACUTE SYSTOLIC (CONGESTIVE) HEART FAILURE Status: Acute (9) SHAQUILLE (acute kidney injury) Code(s): N17.9 - ACUTE KIDNEY FAILURE, UNSPECIFIED Status: Acute Comment: Resolving. - Plan Replete iron with ferllicit. -: Monitor H/H and transfuse as needed. -: Continue PPI. -: GI and Cardiolgy following. * .
--- NOTE | 2018-09-02 17:07 | PRG ---
DATE OF SERVICE: 09/02/2018 SUBJECTIVE: Geoffrey Rico has no new complaints. OBJECTIVE: VITAL SIGNS: He is afebrile, heart rate is 81, respiratory rate is 16, oximetry is 95 on a cannula, and blood pressure 101/52. LUNGS: Clear. HEART: Regular rhythm. ABDOMEN: Soft. LABORATORY DATA: Hemoglobin 7.2 and platelets 72,000. Sodium 138, potassium 4.2, chloride 110, bicarb 23, BUN 31, and creatinine 1.21. IMPRESSION: 1. Mixed anemia, severe. 2. Severe iron deficiency. 3. Status post gastrectomy with Billroth, according to Dr. Garcia's note. 4. History of gastric varices. 5. History of cardiomyopathy with pulmonary edema on admission. 6. History of chronic pancreatitis reportedly. 7. ? History of modified Whipple. It is unclear to me what surgery he has had. He has reportedly had a partial pancreatic resection, which would be an argument that he had a modified Whipple. PLAN: In any event, the problems are primarily related to his anemia and gastroenterology, so we will sign off. He is documented to be stable. He can be moved to a telemetry bed when bed becomes available or possibly even a medical bed given his clinical stability. Job ID: [id number]
[2018-09-02] MEDS: Gabapentin 400 MG CAP PO SCH (20:44)
[2018-09-02] MEDS: Atorvastatin Calcium 40 MG TAB PO SCH (20:45)
[2018-09-03] MEDS: Pantoprazole 80 MG in Sodium Chloride 0.9% 100 ML IVPB SCH ×3 (02:28→23:13)
[2018-09-03 05:27] LABS: Anion Gap 7 mmol/L (10-20); BUN (Urea Nitrogen) 31 mg/dL (8.4-25.7); Calc. Creatinine Clearance 54 mL/min (70-130); Calcium 8.5 mg/dL (7.8-10.44); Carbon Dioxide 26 mmol/L (23-31); Chloride 107 mmol/L (98-107); Estimated GFR-MDRD 54; Glucose 201 mg/dL (80-115); Potassium 4.3 mmol/L (3.5-5.1); Sodium 136 mmol/L (136-145)
[2018-09-03] MEDS: HumaLOG 300 UNITS/3 ML VIAL SC PRN ×3 (06:42→21:59)
[2018-09-03 06:47] LABS: Band 6 % (5-11); Elliptocytes SLIGHT = 2-5 cells (100X) (0-1/hpf); Eosinophils 2 % (0-10); Hemoglobin 7.1 g/dL (14.0-18.0); Lymphocytes 13 % (21-51); MDiff Complete? YES; Mean Corpuscular HGB CONC 29.8 g/dL (32.0-36.0); Mean Corpuscular Hemoglobin 21.3 pg (27.0-31.0); Mean Corpuscular Volume 71.7 fL (78.0-98.0); Mean Platelet Volume 7.8 fL (7.4-10.4); Monocytes 10 % (0-10); Neutrophil 69 % (42-75); Platelet Count 78 thou/uL (130-400); Platelet Morphology Comment Appears Decreased; RBC Distribution Width 19.9 % (11.5-14.5); Red Blood Cell (RBC) Count 3.34 mill/uL (4.70-6.10); White Blood Cell (WBC) Count 3.7 thou/uL (4.8-10.8)
[2018-09-03] MEDS ORDERED: Furosemide 40 MG/4 ML VIAL SLOW IVP SCH (09:00)
[2018-09-03] MEDS: HumuLIN 70/30 (300 UNITS/3 ML VIAL) SC SCH ×2 (09:10→21:57)
[2018-09-03] MEDS: Gabapentin 300 MG CAP PO SCH (09:11)
--- NOTE | 2018-09-03 10:27 | PDOC.PN ---
- Subjective Encounter Start Date: 09/03/18 Encounter Start Time: 10:24 Subjective: Still feeling weak and unsteady. Denied any further bloody stool. - Objective Resuscitation Status - Order Detail: 08/29/18 09:53 Resuscitation Status Routine Resuscitation Status: FULL: Full Resuscitation Vital Signs & Weight: Vital Signs (12 hours) Temp Pulse Resp BP Pulse Ox 09/03/18 09:15 90/55 L 09/03/18 07:51 97.7 F 74 16 87/49 L 92 L 09/03/18 04:00 98.7 F 76 16 89/52 L 91 L 09/03/18 00:00 98.6 F 78 16 93/52 L 91 L Weight Weight 167 lb 3.2 oz Most Recent Monitor Data Heart Rate from ECG 80 NIBP 105/57 NIBP BP-Mean 73 Respiration from ECG 7 SpO2 98 I&O: 09/02/18 09/03/18 09/04/18 06:59 06:59 06:59 Intake Total 2100 240 Output Total 1725 Balance 375 240 Result Diagrams: 09/03/18 04:37 09/03/18 04:37 Additional Labs: Accuchecks 09/03/18 09/03/18 09/02/18 06:11 02:25 20:40 POC Glucose 176 H 281 H 250 H 09/02/18 09/02/18 17:53 11:45 POC Glucose 257 H 206 H Phys Exam - Physical Examination chronically ill looking HEENT: PERRLA, moist MMs Neck: no JVD Respiratory: no wheezing, no rales, no rhonchi fair air entry bilaterally Cardiovascular: RRR systolic murmur noted. Gastrointestinal: soft, non-tender, no distention, positive bowel sounds Musculoskeletal: no edema, pulses present Neurological: non-focal, moves all 4 limbs Psychiatric: A&O x 3 Dx/Plan (1) Acute on chronic blood loss anemia Code(s): D62 - ACUTE POSTHEMORRHAGIC ANEMIA Status: Acute Comment: HB continues to trend downwards concerning for continued GI despite absent of bloody stool. (2) Iron deficiency Code(s): E61.1 - IRON DEFICIENCY Status: Acute Comment: Severe. From chronic blood loss and poor absorption related to abdominal surgeries. (3) Cirrhosis Code(s): K74.60 - UNSPECIFIED CIRRHOSIS OF LIVER Status: Acute (4) Cardiomyopathy Code(s): I42.9 - CARDIOMYOPATHY, UNSPECIFIED Status: Acute (5) GI bleed Code(s): K92.2 - GASTROINTESTINAL HEMORRHAGE, UNSPECIFIED Status: Acute (6) Diabetes Code(s): E11.9 - TYPE 2 DIABETES MELLITUS WITHOUT COMPLICATIONS Status: Chronic Qualifiers: Diabetes mellitus type: type 2 Diabetes mellitus complication status: with neurologic complications (7) Acute non-ST elevation myocardial infarction (NSTEMI) Code(s): I21.4 - NON-ST ELEVATION (NSTEMI) MYOCARDIAL INFARCTION Status: Acute (8) Acute systolic (congestive) heart failure Code(s): I50.21 - ACUTE SYSTOLIC (CONGESTIVE) HEART FAILURE Status: Acute (9) SHAQUILLE (acute kidney injury) Code(s): N17.9 - ACUTE KIDNEY FAILURE, UNSPECIFIED Status: Acute Comment: Resolving. - Plan Get repeat H/H. If hb is not significantly above 7, we will give 1 PRBC -: Continue other treatments. -: Awaiting GI and Cardiology re evaluation. * .
[2018-09-03 10:39] LABS: Hemoglobin 7.9 g/dL (14.0-18.0)
[2018-09-03] MEDS: Spironolactone 25 MG TAB PO SCH (11:06)
[2018-09-03] MEDS: Carvedilol 6.25 MG TAB PO SCH ×2 (11:06→20:56)
[2018-09-03] MEDS: Gabapentin 400 MG CAP PO SCH (20:54)
[2018-09-03] MEDS: Atorvastatin Calcium 40 MG TAB PO SCH (20:55)
[2018-09-04 05:23] LABS: Hemoglobin 6.8 g/dL (14.0-18.0); Mean Corpuscular HGB CONC 29.2 g/dL (32.0-36.0); Mean Corpuscular Hemoglobin 20.9 pg (27.0-31.0); Mean Corpuscular Volume 71.5 fL (78.0-98.0); Mean Platelet Volume 8.6 fL (7.4-10.4); Platelet Count 76 thou/uL (130-400); RBC Distribution Width 19.6 % (11.5-14.5); Red Blood Cell (RBC) Count 3.25 mill/uL (4.70-6.10); White Blood Cell (WBC) Count 2.9 thou/uL (4.8-10.8)
[2018-09-04 05:24] LABS: Anisocytosis SLIGHT = 6-15 cells (100X) (0-5/hpf); Band 2 % (5-11); Eosinophils 2 % (0-10); Hypochromia MODERATE=16-30 cells (100X) (0-5/hpf); Lymphocytes 14 % (21-51); MDiff Complete? YES; Microcytosis SLIGHT = 6-15 cells (100X) (0-5/hpf); Monocytes 4 % (0-10); Neutrophil 78 % (42-75); Platelet Morphology Comment Appears Decreased; Polychromasia SLIGHT = 2-3 cells (100X) (0-2/hpf)
[2018-09-04 05:28] LABS: Anion Gap 8 mmol/L (10-20); BUN (Urea Nitrogen) 28 mg/dL (8.4-25.7); Calc. Creatinine Clearance 66 mL/min (70-130); Calcium 8.4 mg/dL (7.8-10.44); Carbon Dioxide 23 mmol/L (23-31); Chloride 109 mmol/L (98-107); Estimated GFR-MDRD 63; Glucose 189 mg/dL (80-115); Potassium 4.4 mmol/L (3.5-5.1); Sodium 136 mmol/L (136-145)
[2018-09-04] MEDS: Pantoprazole 80 MG in Sodium Chloride 0.9% 100 ML IVPB SCH (09:16)
[2018-09-04] MEDS: Spironolactone 25 MG TAB PO SCH (09:23)
[2018-09-04] MEDS: Gabapentin 300 MG CAP PO SCH (09:24)
[2018-09-04] MEDS: Carvedilol 6.25 MG TAB PO SCH ×2 (09:24→22:08)
[2018-09-04] MEDS: HumuLIN 70/30 (300 UNITS/3 ML VIAL) SC SCH ×2 (09:26→22:11)
--- NOTE | 2018-09-04 10:28 | PDOC.PN ---
- Subjective Encounter Start Date: 09/04/18 Encounter Start Time: 10:15 Subjective: f/u for acute/chronic anemia s/p 2u PRBC's with persistent low Hgb -: Received Iron infusion 09/02/18. - Objective Resuscitation Status - Order Detail: 08/29/18 09:53 Resuscitation Status Routine Resuscitation Status: FULL: Full Resuscitation MAR Reviewed: Yes Vital Signs & Weight: Vital Signs (12 hours) Temp Pulse Resp BP Pulse Ox 09/04/18 09:20 97.9 F 76 15 102/57 L 95 09/04/18 03:35 98.8 F 78 20 104/57 L 93 L 09/03/18 23:16 98.5 F 81 18 108/56 L 98 Weight Weight 163 lb 1.6 oz Most Recent Monitor Data Heart Rate from ECG 80 NIBP 105/57 NIBP BP-Mean 73 Respiration from ECG 7 SpO2 98 I&O: 09/03/18 09/04/18 09/05/18 06:59 06:59 06:59 Intake Total 240 1350 Balance 240 1350 Result Diagrams: 09/04/18 04:17 09/04/18 04:17 Additional Labs: Accuchecks 09/04/18 09/03/18 09/03/18 05:11 21:09 16:56 POC Glucose 192 H 242 H 136 H 09/03/18 11:01 POC Glucose 161 H Laboratory Tests 08/30/18 08/31/18 08/31/18 05:10 04:08 04:08 Hgb 6.6 L Creatinine 1.74 H 1.55 H Iron TIBC % Saturation Ferritin 09/01/18 09/02/18 09/02/18 16:17 04:15 04:15 Hgb 7.7 L 7.2 L Creatinine 1.21 Iron 14 L TIBC 275 % Saturation 5 L Ferritin 09/02/18 09/03/18 09/03/18 04:15 04:37 04:37 Hgb 7.1 L Creatinine 1.32 H Iron TIBC % Saturation Ferritin 19.00 L 09/03/18 10:26 Hgb 7.9 L Creatinine Iron TIBC % Saturation Ferritin Radiology Reviewed by me: Yes (Echo - EF 35%, mod-severe MR) EKG Reviewed by me: Yes (Tele - SR) Phys Exam - Physical Examination Constitutional: NAD HEENT: PERRLA, sclera anicteric, oral pharynx no lesions Neck: no nodes, no JVD, supple, full ROM Respiratory: no wheezing, no rales, no rhonchi, clear to auscultation bilateral S1, S2 Cardiovascular: RRR, no rub, gallop Gastrointestinal: soft, non-tender, no distention, positive bowel sounds Musculoskeletal: no edema, pulses present Neurological: normal sensation, moves all 4 limbs Psychiatric: A&O x 3 Deviation from normal: pale Skin: normal turgor, cap refill <2 seconds Dx/Plan (1) Acute on chronic blood loss anemia Code(s): D62 - ACUTE POSTHEMORRHAGIC ANEMIA Status: Acute Comment: Persistent decrease in Hgb trend, transfuse 1u PRBC's today, may need repeat endoscopy given trend (2) SHAQUILLE (acute kidney injury) Code(s): N17.9 - ACUTE KIDNEY FAILURE, UNSPECIFIED Status: Acute Comment: Improved, avoid nephrotoxic agents and limit contrast exposure (3) Acute non-ST elevation myocardial infarction (NSTEMI) Code(s): I21.4 - NON-ST ELEVATION (NSTEMI) MYOCARDIAL INFARCTION Status: Acute Comment: Medical mgmt (4) Cardiomyopathy Code(s): I42.9 - CARDIOMYOPATHY, UNSPECIFIED Status: Chronic Comment: Likely ischemic, med mgmt as stated above, EF 30-35% (5) Cirrhosis Code(s): K74.60 - UNSPECIFIED CIRRHOSIS OF LIVER Status: Chronic - Plan 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
[2018-09-04 11:10] VITALS: BMI 25.2
[2018-09-04] MEDS: HumaLOG 300 UNITS/3 ML VIAL SC PRN ×3 (11:41→22:12)
[2018-09-04 19:38] LABS: Hemoglobin 8.6 g/dL (14.0-18.0); Platelet Count 87 thou/uL (130-400)
[2018-09-04] MEDS: Atorvastatin Calcium 40 MG TAB PO SCH (22:08)
[2018-09-04] MEDS: Gabapentin 400 MG CAP PO SCH (22:09)
[2018-09-05] MEDS: Pantoprazole 80 MG in Sodium Chloride 0.9% 100 ML IVPB SCH ×2 (00:13→19:20)
[2018-09-05 06:01] LABS: Mean Corpuscular HGB CONC 30.5 g/dL (32.0-36.0); Mean Corpuscular Hemoglobin 22.4 pg (27.0-31.0); Mean Corpuscular Volume 73.3 fL (78.0-98.0); Mean Platelet Volume 7.9 fL (7.4-10.4); Platelet Count 81 thou/uL (130-400); RBC Distribution Width 20.7 % (11.5-14.5); Red Blood Cell (RBC) Count 3.56 mill/uL (4.70-6.10); White Blood Cell (WBC) Count 3.5 thou/uL (4.8-10.8)
[2018-09-05 06:02] LABS: Band 3 % (5-11); Elliptocytes SLIGHT = 2-5 cells (100X) (0-1/hpf); Eosinophils 3 % (0-10); Hypochromia MODERATE=16-30 cells (100X) (0-5/hpf); Lymphocytes 8 % (21-51); MDiff Complete? YES; Microcytosis MODERATE=15-30 cells (100X) (0-5/hpf); Monocytes 11 % (0-10); Neutrophil 74 % (42-75); Platelet Morphology Comment Appears Decreased
[2018-09-05 06:10] LABS: Anion Gap 9 mmol/L (10-20); BUN (Urea Nitrogen) 26 mg/dL (8.4-25.7); Calc. Creatinine Clearance 73 mL/min (70-130); Calcium 8.6 mg/dL (7.8-10.44); Carbon Dioxide 22 mmol/L (23-31); Chloride 113 mmol/L (98-107); Estimated GFR-MDRD 71; Glucose 75 mg/dL (80-115); Potassium 4.7 mmol/L (3.5-5.1); Sodium 139 mmol/L (136-145)
[2018-09-05] MEDS ORDERED: Promethazine HCl 25 MG/ML VIAL IM PRN (10:31)
[2018-09-05] MEDS ORDERED: Ondansetron HCl/PF 4 MG/2 ML Vial IVP PRN (10:31)
--- NOTE | 2018-09-05 11:03 | OP ---
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 PROCEDURE PERFORMED: Esophagogastroduodenoscopy with control of hemorrhage (hemoclip placement). INDICATIONS: 1. Iron-deficiency anemia. 2. History of gastric varices. 3. History of Billroth II/Whipple procedure. 4. History of anastomotic ulceration. MEDICATIONS: See Anesthesia record. FINDINGS: After discussion of the risks, benefits, and alternatives of the procedure, informed consent was obtained and witnessed. Pre-endoscopic cardiopulmonary examination was satisfactory. Time-out was performed before sedation was achieved. Sedation was achieved with Anesthesia assistance in the endoscopy unit. A Pentax adult upper endoscope was placed into the oropharynx and passed through the cricopharyngeus under direct visualization. The esophageal mucosa had some mild friability in the distal esophagus. No evidence of erosive esophagitis. The endoscope was advanced into the stomach. Forward and retroflexed views of the gastric mucosa were obtained. The patient has multiple large gastric varices throughout the fundus and proximal body of the stomach. There are no stigmata of hemorrhage. There is no old blood or active bleeding in the stomach. There are several small arteriovenous malformations scattered throughout the gastric fundus and body. One of these is top, a gastric varix, none of these gastric varices are bleeding. No intervention was performed on the gastric AVMs. Attention was directed to the gastroenteric anastomosis. The patient has Billroth II anatomy. The anastomosis is at 55 cm from the incisors. The anastomosis is diffusely edematous and friable and erythematous. On careful inspection, there are no significant ulcerations of the anastomosis; however, there is a single visible vessel with some mild slow oozing, on the anterior aspect of the anastomosis. I examined beyond the anastomosis to both the afferent and efferent limbs of small bowel. Both limbs were examined to a distance of 90 cm. The small bowel mucosa appeared completely normal. No evidence of any old blood or active bleeding in the small bowel and both afferent and efferent limbs. I then withdrew the scope back to the area of the anastomosis and this visible vessel still had a small area of mild, but persistent oozing. I elected to place a hemoclip to this vessel. A single hemoclip was placed and found to be in good position. The oozing did slow down, though, did not completely cease. The upper endoscope was completely withdrawn and the patient allowed to recover. The patient tolerated the procedure well. There were no immediate postprocedure complications. IMPRESSION: 1. Friable, edematous gastroenteric anastomosis, with Billroth II anatomy. 2. Single visible vessel at the anastomosis with mild persistent oozing. Single hemoclip placed, with slowing of oozing. 3. A few small nonbleeding gastric arteriovenous malformations. 4. Large gastric varices, with no stigmata of hemorrhage. RECOMMENDATIONS: 1. Continue the IV PPI. Upon hospital discharge, the patient is going to need to stay on maximal acid suppression. I would recommend Protonix 40 mg b.i.d. 2. Advance diet. 3. Monitor the H and H. Transfuse as needed. Job ID: [id number]
--- NOTE | 2018-09-05 12:22 | EKG ---
Test Reason : Blood Pressure : / mmHG Vent. Rate : 074 BPM Atrial Rate : 074 BPM P-R Int : 188 ms QRS Dur : 104 ms QT Int : 454 ms P-R-T Axes : 005 001 112 degrees QTc Int : 503 ms Normal sinus rhythm Prolonged QT Abnormal ECG Confirmed by RUBY BUSTAMANTE DO ([id number]), newspaper or periodical editor GEM REYES ([id number]) on 09/05/2018 12:21:45 PM Referred By: Confirmed By:RUBY BUSTAMANTE DO
[2018-09-05] MEDS: Gabapentin 300 MG CAP PO SCH (12:56)
[2018-09-05] MEDS: Carvedilol 6.25 MG TAB PO SCH ×2 (12:57→20:43)
[2018-09-05] MEDS: Spironolactone 25 MG TAB PO SCH (12:57)
[2018-09-05] MEDS: HumuLIN 70/30 (300 UNITS/3 ML VIAL) SC SCH ×2 (13:01→20:48)
--- NOTE | 2018-09-05 14:36 | PDOC.PN ---
- Subjective Encounter Start Date: 09/05/18 Encounter Start Time: 14:30 Subjective: f/u for GI bleed s/p hemoclip of gastric vessel today. s/p 3u total -: PRBC's. Feels better overall. - Objective Resuscitation Status - Order Detail: 08/29/18 09:53 Resuscitation Status Routine Resuscitation Status: FULL: Full Resuscitation MAR Reviewed: Yes Vital Signs & Weight: Vital Signs (12 hours) Temp Pulse Resp BP BP BP Pulse Ox 09/05/18 12:57 120/62 09/05/18 11:10 98.3 F 71 18 122/63 99 09/05/18 07:35 94 L 09/05/18 07:32 97.9 F 70 18 129/73 94 L 09/05/18 03:07 98.5 F 74 14 105/58 L 93 L Weight Weight 160 lb 1.6 oz Most Recent Monitor Data Heart Rate from ECG 80 NIBP 105/57 NIBP BP-Mean 73 Respiration from ECG 7 SpO2 98 I&O: 09/04/18 09/05/18 09/06/18 06:59 06:59 06:59 Intake Total 1350 2165 Balance 1350 2165 Result Diagrams: 09/05/18 04:58 09/05/18 04:58 Additional Labs: Accuchecks 09/05/18 09/05/18 09/04/18 11:47 05:37 20:14 POC Glucose 73 77 338 H 09/04/18 17:01 POC Glucose 380 H Laboratory Tests 08/30/18 08/31/18 08/31/18 05:10 04:08 04:08 Hgb 6.6 L Plt Count Creatinine 1.74 H 1.55 H Iron TIBC % Saturation Ferritin 09/01/18 09/02/18 09/02/18 16:17 04:15 04:15 Hgb 7.7 L 7.2 L Plt Count Creatinine 1.21 Iron 14 L TIBC 275 % Saturation 5 L Ferritin 09/02/18 09/03/18 09/03/18 04:15 04:37 04:37 Hgb 7.1 L Plt Count Creatinine 1.32 H Iron TIBC % Saturation Ferritin 19.00 L 09/03/18 09/04/18 09/04/18 10:26 04:17 19:27 Hgb 7.9 L 6.8 L 8.6 L Plt Count 76 L 87 L Creatinine Iron TIBC % Saturation Ferritin Radiology Reviewed by me: Yes (EGD - friable anastomotic region with oozing vessel) EKG Reviewed by me: Yes (Tele - SR) Phys Exam - Physical Examination Constitutional: NAD HEENT: PERRLA, sclera anicteric, oral pharynx no lesions Neck: no nodes, no JVD, supple, full ROM Respiratory: no wheezing, no rales, no rhonchi, clear to auscultation bilateral S1, S2 Cardiovascular: RRR, no significant murmur, no rub, gallop Gastrointestinal: soft, non-tender, no distention, positive bowel sounds Musculoskeletal: no edema, pulses present Neurological: normal sensation, moves all 4 limbs Psychiatric: A&O x 3 Skin: normal turgor, cap refill <2 seconds Dx/Plan (1) Acute on chronic blood loss anemia Code(s): D62 - ACUTE POSTHEMORRHAGIC ANEMIA Status: Acute Comment: Persistent decrease in Hgb trend, transfuse 1u PRBC's today, s/p hemoclip placement in anastomotic vessel with hemostasis, serial H/H (2) SHAQUILLE (acute kidney injury) Code(s): N17.9 - ACUTE KIDNEY FAILURE, UNSPECIFIED Status: Acute Comment: Improved, avoid nephrotoxic agents and limit contrast exposure (3) Acute non-ST elevation myocardial infarction (NSTEMI) Code(s): I21.4 - NON-ST ELEVATION (NSTEMI) MYOCARDIAL INFARCTION Status: Acute Comment: Medical mgmt (4) Cardiomyopathy Code(s): I42.9 - CARDIOMYOPATHY, UNSPECIFIED Status: Chronic Comment: Likely ischemic, med mgmt as stated above, EF 30-35% (5) Cirrhosis Code(s): K74.60 - UNSPECIFIED CIRRHOSIS OF LIVER Status: Chronic - Plan 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
[2018-09-05] MEDS ORDERED: PROPOFOL 200 MG/20 ML VIAL ONE (15:02)
[2018-09-05] MEDS: HumaLOG 300 UNITS/3 ML VIAL SC PRN (18:29)
[2018-09-05] MEDS: Atorvastatin Calcium 40 MG TAB PO SCH (20:43)
[2018-09-05] MEDS: Gabapentin 400 MG CAP PO SCH (20:46)
[2018-09-06 05:13] LABS: Anion Gap 7 mmol/L (10-20); BUN (Urea Nitrogen) 26 mg/dL (8.4-25.7); Calc. Creatinine Clearance 71 mL/min (70-130); Calcium 8.6 mg/dL (7.8-10.44); Carbon Dioxide 24 mmol/L (23-31); Chloride 110 mmol/L (98-107); Estimated GFR-MDRD 71; Glucose 75 mg/dL (80-115); Potassium 4.8 mmol/L (3.5-5.1); Sodium 136 mmol/L (136-145)
[2018-09-06 05:59] LABS: Eosinophils 6 % (0-10); Hemoglobin 7.8 g/dL (14.0-18.0); Lymphocytes 12 % (21-51); MDiff Complete? YES; Mean Corpuscular HGB CONC 30.5 g/dL (32.0-36.0); Mean Corpuscular Hemoglobin 23.3 pg (27.0-31.0); Mean Corpuscular Volume 76.5 fL (78.0-98.0); Mean Platelet Volume 7.2 fL (7.4-10.4); Microcytosis SLIGHT = 6-15 cells (100X) (0-5/hpf); Monocytes 10 % (0-10); Neutrophil 72 % (42-75); Platelet Count 92 thou/uL (130-400); Platelet Morphology Comment Appears Adequate; RBC Distribution Width 22.2 % (11.5-14.5); Red Blood Cell (RBC) Count 3.33 mill/uL (4.70-6.10); White Blood Cell (WBC) Count 3.5 thou/uL (4.8-10.8)
[2018-09-06] MEDS: Pantoprazole 80 MG in Sodium Chloride 0.9% 100 ML IVPB SCH (05:59)
[2018-09-06] MEDS: Spironolactone 25 MG TAB PO SCH (08:23)
[2018-09-06] MEDS: Gabapentin 300 MG CAP PO SCH (08:23)
[2018-09-06] MEDS: Carvedilol 6.25 MG TAB PO SCH ×2 (08:23→20:52)
[2018-09-06] MEDS: HumuLIN 70/30 (300 UNITS/3 ML VIAL) SC SCH ×2 (08:24→20:52)
--- NOTE | 2018-09-06 09:33 | PRG ---
DATE OF SERVICE: 09/06/2018 SUBJECTIVE: Mr. Rico is feeling pretty well today. He had a morning bowel movement, which was normal, loose, and brown. No melena or hematochezia. He has remained hemodynamically stable. Hemoglobin is stable this morning. OBJECTIVE: VITAL SIGNS: Temperature 97.8, pulse 69, blood pressure 112/55, and 92% oxygen saturation on room air. GENERAL: No acute distress. HEART: Regular rate and rhythm. LUNGS: Clear to auscultation bilaterally. ABDOMEN: Soft, nontender to palpation. EXTREMITIES: No peripheral edema. LABORATORY STUDIES: Hemoglobin 7.8, WBC 3.5, platelets 92. Sodium 136, potassium 4.8, BUN 26, creatinine 1.04, glucose 84. ASSESSMENT AND PLAN: Upper gastrointestinal bleeding, slow, from edematous friable gastroenteric anastomosis. A single visible vessel at the anastomosis was visualized on EGD yesterday with hemoclip placed with slowing of the oozing. The patient also has a few small nonbleeding gastric arteriovenous malformations, as well as large gastric varices with no stigmata of hemorrhage. I advised the patient that he needs to continue with twice daily proton pump inhibitors as an outpatient. H and H should be monitored on an outpatient basis, with further transfusion as needed. Avoid NSAIDs. GI will sign off at this time, but please call back with questions or concerns. Job ID: [id number]
--- NOTE | 2018-09-06 11:38 | PDOC.CTH ---
Cardiology Progress Note - Subjective No complaints. No CP, SOB - Objective Vital Signs Temp Pulse Resp BP BP Pulse Ox 09/06/18 08:23 112/55 L 09/06/18 04:00 97.8 F 69 20 99/57 L 92 L 09/06/18 00:00 98.6 F 74 18 95 Weight 164 lb 09/05/18 09/06/18 09/07/18 06:59 06:59 06:59 Intake Total 2165 1020 Output Total 560 Balance 2165 460 - Physical Examination General/Neuro: alert & oriented x3 Neck: no JVD present Lungs: CTA Heart: RRR Abdomen: NT/ND - Telemetry Telemetry Rhythm: SR - Labs Result Diagrams: 09/06/18 04:31 09/06/18 04:31 Troponin/CKMB CK-MB (CK-2) 17.0 ng/mL (0-6.6) H* 08/29/18 07:03 Troponin I 1.807 ng/mL (< 0.028) H* 08/30/18 09:01 - Assessment/Plan 1. Dilated Cardiomyopathy - unknown etiology 2. GIB 3. Moderate-severe MR 4. History of Fe deficiency anemia and recent exacerbation by GIB Discussed with patient. Will need further work-up as outpatient once anemia improves. No prior stress test per patient. LifeVest ordered. ? decrease aldactone and add low dose lisinopril?
[2018-09-06] MEDS: HumaLOG 300 UNITS/3 ML VIAL SC PRN ×2 (11:54→17:48)
--- NOTE | 2018-09-06 15:54 | PDOC.PN ---
- Subjective Encounter Start Date: 09/06/18 Encounter Start Time: 11:00 Subjective: f/u for GI bleed s/p hemoclip to gastroenteric anastomotic region. s /p 3u -: total PRBC's on Protonix. Feels better overall. No abd pain, N/V. - Objective Resuscitation Status - Order Detail: 08/29/18 09:53 Resuscitation Status Routine Resuscitation Status: FULL: Full Resuscitation MAR Reviewed: Yes Vital Signs & Weight: Vital Signs (12 hours) Temp Pulse Resp BP BP Pulse Ox 09/06/18 12:00 97.4 F L 68 18 101/56 L 95 09/06/18 08:23 112/55 L 09/06/18 08:00 97.7 F 67 18 112/55 L 95 09/06/18 04:00 97.8 F 69 20 99/57 L 92 L Weight Weight 164 lb Most Recent Monitor Data Heart Rate from ECG 80 NIBP 105/57 NIBP BP-Mean 73 Respiration from ECG 7 SpO2 98 I&O: 09/05/18 09/06/18 09/07/18 06:59 06:59 06:59 Intake Total 2165 1020 254 Output Total 560 Balance 2165 460 254 Result Diagrams: 09/06/18 04:31 09/06/18 04:31 Additional Labs: Accuchecks 09/06/18 09/06/18 09/05/18 11:16 05:23 20:25 POC Glucose 235 H 84 221 H 09/05/18 16:43 POC Glucose 206 H Laboratory Tests 08/30/18 08/31/18 08/31/18 05:10 04:08 04:08 WBC Hgb 6.6 L Plt Count Creatinine 1.74 H 1.55 H Iron TIBC % Saturation Ferritin 09/01/18 09/02/18 09/02/18 16:17 04:15 04:15 WBC Hgb 7.7 L 7.2 L Plt Count Creatinine 1.21 Iron 14 L TIBC 275 % Saturation 5 L Ferritin 09/02/18 09/03/18 09/03/18 04:15 04:37 04:37 WBC Hgb 7.1 L Plt Count Creatinine 1.32 H Iron TIBC % Saturation Ferritin 19.00 L 09/03/18 09/04/18 09/04/18 10:26 04:17 19:27 WBC Hgb 7.9 L 6.8 L 8.6 L Plt Count 76 L 87 L Creatinine Iron TIBC % Saturation Ferritin 09/05/18 04:58 WBC 3.5 L Hgb 8.0 L Plt Count 81 L Creatinine Iron TIBC % Saturation Ferritin EKG Reviewed by me: Yes (Tele - SR) Phys Exam - Physical Examination Constitutional: NAD HEENT: PERRLA, sclera anicteric, oral pharynx no lesions Neck: no nodes, no JVD, supple, full ROM Respiratory: no wheezing, no rales, no rhonchi, clear to auscultation bilateral S1, S2 Cardiovascular: RRR, no significant murmur, no rub, gallop Gastrointestinal: soft, non-tender, no distention, positive bowel sounds Musculoskeletal: no edema, pulses present Neurological: normal sensation, moves all 4 limbs Psychiatric: A&O x 3 Deviation from normal: pale Skin: normal turgor, cap refill <2 seconds Dx/Plan (1) Acute on chronic blood loss anemia Code(s): D62 - ACUTE POSTHEMORRHAGIC ANEMIA Status: Acute Comment: s/p hemoclip placement in anastomotic vessel with hemostasis, serial H/H, s/p 3u PRBC's (2) SHAQUILLE (acute kidney injury) Code(s): N17.9 - ACUTE KIDNEY FAILURE, UNSPECIFIED Status: Acute Comment: Improved, avoid nephrotoxic agents and limit contrast exposure (3) Acute non-ST elevation myocardial infarction (NSTEMI) Code(s): I21.4 - NON-ST ELEVATION (NSTEMI) MYOCARDIAL INFARCTION Status: Acute Comment: Medical mgmt (4) Cardiomyopathy Code(s): I42.9 - CARDIOMYOPATHY, UNSPECIFIED Status: Chronic Comment: Likely ischemic, med mgmt as stated above, EF 30-35%, LifeVest application pending, No CHARLETTE/ARB due to hypotension (5) Cirrhosis Code(s): K74.60 - UNSPECIFIED CIRRHOSIS OF LIVER Status: Chronic Comment: 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
[2018-09-06] MEDS: Atorvastatin Calcium 40 MG TAB PO SCH (20:52)
[2018-09-06] MEDS: Gabapentin 400 MG CAP PO SCH (20:52)
[2018-09-07 05:54] LABS: Hemoglobin 8.5 g/dL (14.0-18.0); Platelet Count 95 thou/uL (130-400)
--- NOTE | 2018-09-07 08:10 | PDOC.PN ---
- Subjective Encounter Start Date: 09/07/18 Encounter Start Time: 08:08 Subjective: no bleeding,etc - Objective Resuscitation Status - Order Detail: 08/29/18 09:53 Resuscitation Status Routine Resuscitation Status: FULL: Full Resuscitation MAR Reviewed: Yes Vital Signs & Weight: Vital Signs (12 hours) Temp Pulse Resp BP BP Pulse Ox 09/07/18 04:00 99.2 F 66 16 99/56 L 95 09/07/18 00:00 98.9 F 66 16 93 L 09/06/18 20:52 111/58 L 09/06/18 20:48 99.1 F 71 20 111/58 L 96 Weight Weight 161 lb 4.8 oz Most Recent Monitor Data Heart Rate from ECG 80 NIBP 105/57 NIBP BP-Mean 73 Respiration from ECG 7 SpO2 98 I&O: 09/06/18 09/07/18 09/08/18 06:59 06:59 06:59 Intake Total 1020 2114 Output Total 560 Balance 460 2114 Result Diagrams: 09/07/18 04:59 09/06/18 04:31 Additional Labs: Accuchecks 09/07/18 09/07/18 09/06/18 06:28 05:36 20:10 POC Glucose 99 59 L* 347 H 09/06/18 09/06/18 16:53 11:16 POC Glucose 220 H 235 H Phys Exam - Physical Examination Neck: no JVD Respiratory: clear to auscultation bilateral Cardiovascular: RRR, no significant murmur Gastrointestinal: soft, positive bowel sounds Musculoskeletal: no edema Dx/Plan (1) SHAQUILLE (acute kidney injury) Code(s): N17.9 - ACUTE KIDNEY FAILURE, UNSPECIFIED Status: Acute Comment: Improved, avoid nephrotoxic agents and limit contrast exposure (2) Acute blood loss anemia Code(s): D62 - ACUTE POSTHEMORRHAGIC ANEMIA Status: Acute (3) Acute non-ST elevation myocardial infarction (NSTEMI) Code(s): I21.4 - NON-ST ELEVATION (NSTEMI) MYOCARDIAL INFARCTION Status: Acute Comment: Medical mgmt (4) Acute on chronic blood loss anemia Code(s): D62 - ACUTE POSTHEMORRHAGIC ANEMIA Status: Acute Comment: s/p hemoclip placement in anastomotic vessel with hemostasis, serial H/H, s/p 3u PRBC's (5) Acute systolic (congestive) heart failure Code(s): I50.21 - ACUTE SYSTOLIC (CONGESTIVE) HEART FAILURE Status: Acute (6) GI bleed Code(s): K92.2 - GASTROINTESTINAL HEMORRHAGE, UNSPECIFIED Status: Acute Qualifiers: GI bleed type/associated pathology: gastrojejunal ulcer Qualified Code(s): 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 From chronic blood loss and poor absorption related to abdominal surgeries. (8) Cardiomyopathy Code(s): I42.9 - CARDIOMYOPATHY, UNSPECIFIED Status: Chronic Qualifiers: Cardiomyopathy type: unspecified Qualified Code(s): I42.9 - Cardiomyopathy , unspecified Comment: Likely ischemic, med mgmt as stated above, EF 30-35%, LifeVest application pending, No CHARLETTE/ARB due to hypotension (9) Anemia Code(s): D64.9 - ANEMIA, UNSPECIFIED Status: Acute Qualifiers: Iron deficiency anemia type: chronic blood loss (10) Encephalopathy Code(s): G93.40 - ENCEPHALOPATHY, UNSPECIFIED Status: Resolved (11) Pancytopenia Code(s): D61.818 - OTHER PANCYTOPENIA Status: Acute (12) Diabetes Code(s): E11.9 - TYPE 2 DIABETES MELLITUS WITHOUT COMPLICATIONS Status: Chronic Qualifiers: Diabetes mellitus type: type 2 Diabetes mellitus complication status: with neurologic complications (13) GERD (gastroesophageal reflux disease) Code(s): K21.9 - GASTRO-ESOPHAGEAL REFLUX DISEASE WITHOUT ESOPHAGITIS Status: Chronic Qualifiers: Esophagitis presence: esophagitis presence not specified Qualified Code(s) : K21.9 - Gastro-esophageal reflux disease without esophagitis (14) Hypertension Code(s): I10 - ESSENTIAL (PRIMARY) HYPERTENSION Status: Chronic Qualifiers: Hypertension type: essential hypertension Qualified Code(s): I10 - Essential (primary) hypertension (15) Neuropathy Code(s): G62.9 - POLYNEUROPATHY, UNSPECIFIED Status: Chronic - Plan stable,awaiting life vedt for DC * .
[2018-09-07] MEDS: Spironolactone 25 MG TAB PO SCH (08:14)
[2018-09-07] MEDS: HumuLIN 70/30 (300 UNITS/3 ML VIAL) SC SCH (08:14)
[2018-09-07] MEDS: Gabapentin 300 MG CAP PO SCH (08:14)
[2018-09-07] MEDS: Carvedilol 6.25 MG TAB PO SCH (08:14)
[2018-09-07] MEDS ORDERED: Lisinopril 2.5 MG TAB PO SCH (09:00)
--- NOTE | 2018-09-07 10:35 | DIS ---
DATE OF ADMISSION: 08/29/2018 DATE OF DISCHARGE: 09/06/2018 DISCHARGE DIAGNOSES: 1. Acute gastrointestinal bleed secondarily to gastroenteric anastomosis bleeding. 2. Acute on chronic blood loss anemia, status post 3 units of packed red blood cells. 3. Acute kidney injury, resolving. 4. Acute non-ST elevation myocardial infarction type 2 secondary to demand ischemia. 5. Cardiomyopathy with ejection fraction of 30% to 35%. 6. Hepatic cirrhosis, chronic. CONSULTATIONS: 1. Dr. Alford and Dr. Garcia with GI Service. 2. Dr. Nixon with Cardiology Service. PERTINENT LABORATORY AND X-RAY FINDINGS: Creatinine ranged between 1.04 to 2.02. Estimated GFR ranged between 33 to 71. Serum iron level 14. TIBC 275, percent saturation 5, and ferritin 19. Troponin I ranged between 1.12 to 1.82. BNP 1872. CBC showed a hemoglobin ranging between 6.3 to 8.6, MCV 77. Stool Hemoccult dated 08/29/2018, positive x1. 2D transthoracic echocardiogram dated 08/30/2018, showed ejection fraction of 30% to 35%. [place] is hypokinetic. [id number] mitral valve regurgitation. HOSPITAL COURSE: The patient was initially admitted after presenting with generalized weakness with associated shortness of breath. The patient underwent metabolic screening showing evidence of severe anemia with initial hemoglobin of 6.3. Stool Hemoccult was performed and positive x1. The patient was evaluated by the GI Service with recommendations for endoscopy. The patient was transfused 2 units of packed red blood cells and monitored for clinical response. The patient had serial hemoglobin assessments showing undulating trend requiring 3rd unit of packed red blood cells after addition of IV Protonix and avoidance of NSAIDs and anticoagulation. The patient underwent EGD evaluation on 09/05/2018, showing gastroenteric anastomosis of bleeding, status post hemoclip placement x1. Also noted was edematous and friable anastomosis with Billroth II anatomy. The patient continued on IV Protonix through the remainder of the hospital course with serial hemoglobins showing overall stable trend. The patient received 3 units total of packed red blood cells during the hospital course and clinically stabilized with volume support and proton pump inhibitors. The patient was also diagnosed with a non-ST elevation myocardial infarction, likely due to demand ischemia and secondary to GI bleeding. The patient was evaluated by the Cardiology Service with recommendations to initiate Coreg. Anti-platelet therapy was not recommended due to ongoing GI bleeding with requirements for packed red blood cell transfusions. The patient will likely need additional aspirin therapy on an ongoing basis after discharge and stabilization of GI status. Overall, the patient did remain clinically stable during the hospital course. I have examined the patient at the time of discharge and discussed followup instructions. The patient overall clinically stable and ready for discharge on 09/06/2018. DISCHARGE MEDICATIONS: 1. Gabapentin 600 mg p.o. daily and 1200 mg p.o. at bedtime. 2. Novolin 70/30 of 35 units subcutaneously b.i.d. 3. Creon DR 24,000 units p.o. b.i.d. 4. Norvasc discontinued. 5. Coreg 3.125 mg p.o. b.i.d. 6. Protonix 40 mg p.o. b.i.d. FOLLOWUP: The patient may follow up with his primary care provider at the [facility] in [place], [place] within 7 days of discharge. CONDITION ON DISCHARGE: Fair. SPECIAL INSTRUCTIONS: Recommend initiation of anti-platelet therapy in the next 2 weeks after discharge. Recommend a followup with Cardiology Service. DIET: Heart healthy/ADA. ACTIVITY: Ad-cammie. CODE STATUS: Full. DISPOSITION: Home on 09/06/2018. TIME SPENT: Total time preparing and coordinating discharge is 38 minutes. Job ID: [id number]
--- NOTE | 2018-09-07 10:59 | PRG ---
DATE OF SERVICE: 09/04/2018 SUBJECTIVE: Mr. Geoffrey Rico is a very pleasant 68-year-old male, hospitalized approximately a week ago with dyspnea, palpitation, and anemia. He had no history of hematochezia or melena. However, the stool for occult blood was positive. The patient was seen by Cardiology and was found to have evidence of cardiomyopathy with poor EF. He has been diuresed. The EGD was on hold because of cardiac problem. On the last one he has remarkably improved. He has not short of breath anymore. His pulse rate had come down. He had no dyspnea or chest pain. Interestingly, his blood count has been dropping down slowly. He has no history of overt bleeding like melena or hematochezia. He has been transfused. On 08/29, hemoglobin 6.3 and hematocrit 21 subsequently. Yesterday, it was 7.9, hematocrit 26.7. Today's hemoglobin dropped to 7. He has been transfused. The patient denies any hematochezia or any melena. No abdominal pain. No nausea or vomiting. PHYSICAL EXAMINATION: GENERAL: Appears comfortable. He is not short of breath anymore. Afebrile. Pulse is 77 and blood pressure is 112/60. HEENT: Conjunctivae are clear. CARDIOVASCULAR: First and second heart sounds normal. LUNGS: Clear to auscultation. ABDOMEN: Soft. No organomegaly. No tenderness. No masses. CLINICAL IMPRESSION: Dropping hemoglobin and hematocrit with out overt bleeding . The patient has had two EGDs in the last 2 years. He also had a colonoscopy in the last 2 years. The patient was found to have anastomotic ulcer at that time.. the patient has had previous partial gastrectomy. 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 In his last EGD, I felt he has had small varicose veins in distal esophagus and also gastric varices. I did talk to Mr. Rico about drop in blood count and need for EGD. He has agreed. He will prep for EGD tomorrow, which will be performed by Dr. Balwinder Alford, who is on-call for me. Job ID: [id number] [facility]
[2018-09-07 17:18] VITALS: BP 111/63; TEMP 98.5
--- NOTE | 2018-09-07 18:38 | DIS ---
DATE OF ADMISSION: 08/29/2018 DATE OF DISCHARGE: 09/07/2018 TRANSFER CARE PRIMARY CARE PROVIDER: [facility]. DISPOSITION: Discharged to home. The patient was referred to the [facility] for acute anemia. FINAL DIAGNOSES: 1. Anemia of acute gastrointestinal blood loss. 2. Friable gastroenteric anastomosis with visible single-vessel with mild persistent oozing. 3. Cirrhosis. 4. Cardiomyopathy. 5. Acute kidney injury. 6. Diabetes mellitus type 2. 7. Gastroesophageal reflux disease. 8. Hypertension. 9. Neuropathy. 10. Non-ST elevation myocardial infarction. DISCHARGE MEDICATIONS: 1. Gabapentin 1200 mg p.o. h.s. 2. Novolin 70/30, 35 units subcu twice a day. 3. Gabapentin 600 mg daily. 4. Aldactone 25 mg a day. 5. Protonix 40 mg twice a day. 6. Zestril 2.5 mg a day. 7. Coreg 6.25 mg twice a day. 8. Lipitor 40 mg a day. ALLERGIES: NO KNOWN DRUG ALLERGIES. CODE STATUS: Full. DIET: Diabetic. PENDING AT THE TIME OF DISCHARGE: Nothing. HOSPITAL COURSE: The patient with weakness, presented to the emergency room, found to have a significant anemia. He was placed in IMCU on a Protonix drip. Gastroenterology was consulted. H and H were monitored closely. He was placed n.p.o. and on sliding scale insulin with Accu-Cheks. He was treated perennially for blood pressure. Consultation was obtained with Dr. Mariangel Garcia; Dr. Ren Nixon, Cardiology; Dr. Shoaib Gannon, Pulmonology Senior Engineering Team Leader. The patient had an echocardiogram done, which showed an EF of 30% to 35%. His laboratory during his hospital stay; his initial hemoglobin was 6.3. He was transfused. Eventually, his hemoglobin stabilized at 7.8 to 8.6. His vital signs are currently stable. He was transitioned from IV Protonix to Protonix 40 mg twice a day. Because of his cardiomyopathy, he was started on beta-jennifer, CHARLETTE inhibitor, spironolactone. Currently, he is doing well. He has been evaluated for a LifeVest, one has been placed and he is being discharged with one. His current vital signs are stable. Blood pressure is ranging from 106/56 to 111/63, pulse is stable at 70 plus or minus. Blood sugar has been as low as 59 and as high as 340, but is currently doing well. Renal function is normal. [facility] Requested to follow up with Dr. Nixon, Cardiology and Dr. Alford, who did his EGD. Prescriptions have been written. Job ID: [id number]
== END 2018-09-07 19:45 | disposition home or self-care (01) | DRG 919 ==
LOC: ERS 06:49 → IMCU/EMU 08:28 → 2SE 09-02 13:02 → 2NO 09-03 18:36
PROVIDERS: ADMIT Internal Medicine; ATTEND Internal Medicine
PROC: 30233N1 Transfusion of Nonautologous Red Blood Cells into Peripheral Vein, Percutaneous Approach (ICD-10-PCS; 2018-08-29)
PROC: 0W3P8ZZ Control Bleeding in Gastrointestinal Tract, Via Natural or Artificial Opening Endoscopic (ICD-10-PCS; principal; 2018-08-30)
DX: K91.840 Postprocedural hemorrhage of a digestive system organ or structure following a digestive system procedure (principal); I21.A1 Myocardial infarction type 2; I50.23 Acute on chronic systolic (congestive) heart failure; K86.1 Other chronic pancreatitis; D62 Acute posthemorrhagic anemia; N17.9 Acute kidney failure, unspecified; I42.0 Dilated cardiomyopathy; G93.40 Encephalopathy, unspecified; K21.9 Gastro-esophageal reflux disease without esophagitis; G51.0 Bell's palsy; I11.0 Hypertensive heart disease with heart failure; D63.8 Anemia in other chronic diseases classified elsewhere; D50.0 Iron deficiency anemia secondary to blood loss (chronic); K55.20 Angiodysplasia of colon without hemorrhage; D50.9 Iron deficiency anemia, unspecified; D69.6 Thrombocytopenia, unspecified; E11.42 Type 2 diabetes mellitus with diabetic polyneuropathy; K74.60 Unspecified cirrhosis of liver; Z87.891 Personal history of nicotine dependence; Z91.14 Patient's other noncompliance with medication regimen; Z90.49 Acquired absence of other specified parts of digestive tract; Z79.4 Long term (current) use of insulin; Z79.899 Other long term (current) drug therapy
CPT/HCPCS: 36415; 36416; 36430; 71045; 80048; 80053; 82274; 82553; 82728; 83540; 83550; 83880; 84484; 85007; 85014; 85018; 85025; 85027; 85049; 86850; 86900; 86901; 93005; 93306; 94760; 96361; 96365; 96367; 96368; 96376; C9113; J0456; J0696; J1815; J1940; J2704; J2916; J3490; P9016

== ENCOUNTER 2018-12-05 21:17 | Emergency (ER) | payer MEDICARE | END 2018-12-05 21:52 | disposition home or self-care (01) | LOC: ERS 21:17 | DX: E11.40 Type 2 diabetes mellitus with diabetic neuropathy, unspecified (principal); K21.9 Gastro-esophageal reflux disease without esophagitis; I10 Essential (primary) hypertension; Z87.891 Personal history of nicotine dependence; Z79.4 Long term (current) use of insulin; Z76.0 Encounter for issue of repeat prescription; Z79.899 Other long term (current) drug therapy | CPT/HCPCS: 99281 ==

== ENCOUNTER 2020-05-16 22:33 | Inpatient (IN) | payer MEDICARE, OTHER ==
[~2020-05-16 22:33] MED LIST: Iopamidol-370 76% 500 ML 1 ML ONE
[2020-05-16 23:21] LABS: #Lymphocytes 0.3 thou/uL (1.20-3.40); #Monocytes 0.6 thou/uL (0.11-0.59); #Neutrophils 7.3 thou/uL (1.40-6.50); %Basophils 0.6 % (0.0-1.0); %Eosinophils 0.2 % (0.0-10.0); %Lymphocytes 3.1 % (21.0-51.0); %Monocytes 7.4 % (0.0-10.0); %Neutrophils 88.8 % (42.0-75.0); Hemoglobin 8.9 g/dL (14.0-18.0); Mean Corpuscular HGB CONC 32.5 g/dL (32.0-36.0); Mean Corpuscular Hemoglobin 30.1 pg (27.0-31.0); Mean Corpuscular Volume 92.7 fL (78.0-98.0); Mean Platelet Volume 9.6 fL (7.4-10.4); Platelet Count 63 thou/uL (130-400); RBC Distribution Width 16.4 % (11.5-14.5); Red Blood Cell (RBC) Count 2.96 mill/uL (4.70-6.10); White Blood Cell (WBC) Count 8.2 thou/uL (4.8-10.8)
[2020-05-16 23:41] LABS: ALT (SGPT) 27 U/L (8-55); AST (SGOT) 25 U/L (5-34); Albumin 2.6 g/dL (3.4-4.8); Alkaline Phosphatase 88 U/L (40-110); Anion Gap 13 mmol/L (10-20); BUN (Urea Nitrogen) 75 mg/dL (8.4-25.7); Bilirubin, Total 1.6 mg/dL (0.2-1.2); Calc. Creatinine Clearance 0 mL/min (70-130); Calcium 8.9 mg/dL (7.8-10.44); Carbon Dioxide 18 mmol/L (23-31); Chloride 117 mmol/L (98-107); Globulin 3.8 g/dL (2.4-3.5); Glucose 240 mg/dL (80-115); Lipase 48 U/L (8-78); Potassium 4.2 mmol/L (3.5-5.1); Protein, Total 6.4 g/dL (5.8-8.1); Sodium 144 mmol/L (136-145)
[2020-05-17 00:02] LABS: CKMB 2.6 ng/mL (0-6.6)
[2020-05-17] MEDS ORDERED: Morphine 4 MG/ML VIAL ONE (01:36)
[2020-05-17] MEDS ORDERED: Ondansetron PF 4 MG/2 ML Vial ONE (01:36)
[2020-05-17 02:01] LABS: Bilirubin Negative (Negative); Blood, Urine Negative (Negative); Clarity Clear (Clear); Glucose, Urine (Dipstick) Normal (Negative); Ketone, Urine Negative (Negative); Leukocyte 25 Leu/uL (Negative); Nitrite Negative (Negative); Protein, Urine (Dipstick) 30 mg/dL (Neg-Trace); RBC/HPF 0-3 HPF (0-3); Specific Gravity, Urine 1.029 (1.002-1.036); Squamous Epithelial 0-3 HPF (0-3); Urobilinogen Normal mg/dL (Less than 2)
[2020-05-17 02:03] LABS: Bacteria/HPF 1+ HPF (None Seen)
[2020-05-17 02:25] LABS: INR-International Normal Ratio 1.5; PTT 35.2 sec (22.9-36.1); Prothrombin Time 18.7 sec (12.0-14.7)
[2020-05-17 03:48] LABS: Troponin I 0.234 ng/mL (< 0.028)
[2020-05-17] MEDS ORDERED: Ondansetron PF 4 MG/2 ML Vial IVP PRN (05:16)
[2020-05-17] MEDS ORDERED: HumaLOG 300 UNITS/3 ML VIAL SC PRN (05:24)
[2020-05-17] MEDS ORDERED: Dextrose 5% in Water 1,000 ML IV PRN (05:24)
[2020-05-17] MEDS ORDERED: Dextrose 50% Abboject 50 ML SYRINGE SLOW IVP PRN (05:24)
[2020-05-17 05:36] LABS: SARS-CoV-2 PCR by NAA Not Detected (NotDetected)
[2020-05-17 06:25] LABS: Troponin I 0.228 ng/mL (< 0.028)
[2020-05-17 07:10] LABS: #Basophils 0.1 thou/uL (0.0-0.2); #Lymphocytes 0.2 thou/uL (1.20-3.40); #Monocytes 0.4 thou/uL (0.11-0.59); #Neutrophils 7.4 thou/uL (1.40-6.50); %Basophils 0.6 % (0.0-1.0); %Eosinophils 0.1 % (0.0-10.0); %Monocytes 4.5 % (0.0-10.0); %Neutrophils 92.8 % (42.0-75.0); Hemoglobin 9.4 g/dL (14.0-18.0); Mean Corpuscular HGB CONC 32.9 g/dL (32.0-36.0); Mean Corpuscular Hemoglobin 30.3 pg (27.0-31.0); Mean Platelet Volume 9.6 fL (7.4-10.4); Platelet Count 61 thou/uL (130-400); RBC Distribution Width 16.2 % (11.5-14.5); Red Blood Cell (RBC) Count 3.11 mill/uL (4.70-6.10); White Blood Cell (WBC) Count 7.9 thou/uL (4.8-10.8)
[2020-05-17] MEDS ORDERED: cefTRIAXone\\ROCEPHIN 1 GM VIAL ONE (07:11)
[2020-05-17] MEDS: cefTRIAXone\\ROCEPHIN 1 GM in Sodium Chloride 0.9% 100 ML IVPB SCH (07:20)
[2020-05-17 07:35] LABS: Anion Gap 13 mmol/L (10-20); BUN (Urea Nitrogen) 74 mg/dL (8.4-25.7); Calc. Creatinine Clearance 0 mL/min (70-130); Calcium 8.8 mg/dL (7.8-10.44); Carbon Dioxide 20 mmol/L (23-31); Chloride 117 mmol/L (98-107); Glucose 214 mg/dL (80-115); Iron 26 ug/dL (65-175); Iron Binding Capacity, Total 134 mcg/dL (261-462); Potassium 4.4 mmol/L (3.5-5.1); Sodium 146 mmol/L (136-145)
[2020-05-17] MEDS ORDERED: Bisacodyl 10 MG SUPP PR PRN (07:55)
[2020-05-17] MEDS ORDERED: hydrALAZINE 20 MG/ML VIAL SLOW IVP PRN (07:55)
[2020-05-17] MEDS ORDERED: Sodium Chloride 0.65% Nasal 44 ML BOT EA NARE PRN (07:55)
[2020-05-17 08:41] LABS: Lactic Acid 1.5 mmol/L (0.5-2.2)
[2020-05-17] MEDS ORDERED: Pantoprazole 40 MG GRANULES PACKET PO SCH (09:00)
[2020-05-17] MEDS ORDERED: Acetaminophen 325 MG TAB ONE (10:43)
[2020-05-17] MEDS: Acetaminophen 325 MG TAB PO PRN (10:53)
[2020-05-17] MEDS ORDERED: Morphine 2 MG/ML VIAL ONE (11:48)
[2020-05-17] MEDS: Morphine 2 MG/ML VIAL SLOW IVP PRN ×3 (11:58→22:36)
[2020-05-17] MEDS ORDERED: metroNIDAZOLE 500 MG/100 ML BAG ONE (14:15)
[2020-05-17] MEDS: metroNIDAZOLE 500 MG in Premix Bag 1 BAG IVPB SCH ×2 (14:21→20:08)
[2020-05-17 18:25] VITALS: BMI 20.5
[2020-05-18] MEDS: Sodium Chloride 0.9% 1,000 ML IV SCH ×3 (01:06→19:32)
[2020-05-18] MEDS: Morphine 2 MG/ML VIAL SLOW IVP PRN ×6 (02:17→22:36)
[2020-05-18 04:33] LABS: #Basophils 0.1 thou/uL (0.0-0.2); #Lymphocytes 0.2 thou/uL (1.20-3.40); #Monocytes 1.2 thou/uL (0.11-0.59); #Neutrophils 16.5 thou/uL (1.40-6.50); %Basophils 0.4 % (0.0-1.0); %Eosinophils 0.1 % (0.0-10.0); %Lymphocytes 1.2 % (21.0-51.0); %Monocytes 6.4 % (0.0-10.0); %Neutrophils 91.9 % (42.0-75.0); Hemoglobin 10.2 g/dL (14.0-18.0); Mean Corpuscular HGB CONC 32.6 g/dL (32.0-36.0); Mean Corpuscular Hemoglobin 30.2 pg (27.0-31.0); Mean Corpuscular Volume 92.7 fL (78.0-98.0); Mean Platelet Volume 9.9 fL (7.4-10.4); Platelet Count 73 thou/uL (130-400); RBC Distribution Width 16.6 % (11.5-14.5); Red Blood Cell (RBC) Count 3.37 mill/uL (4.70-6.10)
[2020-05-18 04:40] LABS: Lactic Acid 1.2 mmol/L (0.5-2.2)
[2020-05-18 04:43] LABS: ALT (SGPT) 31 U/L (8-55); AST (SGOT) 25 U/L (5-34); Albumin 2.3 g/dL (3.4-4.8); Alkaline Phosphatase 94 U/L (40-110); Anion Gap 13 mmol/L (10-20); BUN (Urea Nitrogen) 75 mg/dL (8.4-25.7); Bilirubin, Direct 0.7 mg/dL (0.1-0.3); Calc. Creatinine Clearance 37 mL/min (70-130); Calcium 8.7 mg/dL (7.8-10.44); Carbon Dioxide 18 mmol/L (23-31); Chloride 120 mmol/L (98-107); Glucose 197 mg/dL (80-115); Phosphorus 4.8 mg/dL (2.3-4.7); Potassium 4.3 mmol/L (3.5-5.1); Protein, Total 6.2 g/dL (5.8-8.1); Sodium 147 mmol/L (136-145)
[2020-05-18] MEDS: cefTRIAXone\\ROCEPHIN 1 GM in Sodium Chloride 0.9% 100 ML IVPB SCH (04:44)
[2020-05-18] MEDS: metroNIDAZOLE 500 MG in Premix Bag 1 BAG IVPB SCH ×3 (04:45→21:16)
[2020-05-18] MEDS: Pancrelipase DR 12,000 1 CAP PO SCH ×3 (08:32→17:58)
[2020-05-18] MEDS: Pantoprazole 40 MG VIAL IVP SCH (08:33)
[2020-05-18] MEDS: Acetaminophen 325 MG TAB PO PRN ×2 (13:29→19:32)
[2020-05-19] MEDS: Morphine 2 MG/ML VIAL SLOW IVP PRN ×6 (04:12→23:12)
[2020-05-19] MEDS: Sodium Chloride 0.9% 1,000 ML IV SCH (04:12)
[2020-05-19] MEDS: cefTRIAXone\\ROCEPHIN 1 GM in Sodium Chloride 0.9% 100 ML IVPB SCH (05:23)
[2020-05-19] MEDS: metroNIDAZOLE 500 MG in Premix Bag 1 BAG IVPB SCH ×3 (05:24→20:42)
[2020-05-19 05:28] LABS: Anion Gap 15 mmol/L (10-20); BUN (Urea Nitrogen) 85 mg/dL (8.4-25.7); Calc. Creatinine Clearance 33 mL/min (70-130); Calcium 8.2 mg/dL (7.8-10.44); Carbon Dioxide 16 mmol/L (23-31); Chloride 122 mmol/L (98-107); Glucose 211 mg/dL (80-115); Potassium 4.3 mmol/L (3.5-5.1); Sodium 149 mmol/L (136-145)
[2020-05-19 05:46] LABS: Band 13 % (5-11); Burr Cells MODERATE= 6-15 cells (100X) (0-1/hpf); Hemoglobin 9.9 g/dL (14.0-18.0); Lymphocytes 1 % (21-51); MDiff Complete? YES; Mean Corpuscular HGB CONC 31.9 g/dL (32.0-36.0); Mean Corpuscular Hemoglobin 29.8 pg (27.0-31.0); Mean Corpuscular Volume 93.6 fL (78.0-98.0); Mean Platelet Volume 9.4 fL (7.4-10.4); Monocytes 5 % (0-10); Neutrophil 81 % (42-75); Platelet Count 73 thou/uL (130-400); Platelet Morphology Comment Appears Decreased; RBC Distribution Width 16.7 % (11.5-14.5); Red Blood Cell (RBC) Count 3.33 mill/uL (4.70-6.10); White Blood Cell (WBC) Count 16.6 thou/uL (4.8-10.8)
[2020-05-19] MEDS: Pantoprazole 40 MG VIAL IVP SCH (08:13)
[2020-05-19] MEDS ORDERED: PROPOFOL 200 MG/20 ML VIAL ONE (09:38)
[2020-05-19] MEDS ORDERED: Sodium Bicarbonate 150 MEQ in Dextrose 5% in Water 1,000 ML IV SCH (09:45)
[2020-05-19] MEDS ORDERED: Fluconazole 100 MG TAB PO SCH (10:45)
[2020-05-19] MEDS: Pancrelipase DR 12,000 1 CAP PO SCH ×3 (12:10→17:37)
[2020-05-19] MEDS: Sodium Bicarbonate 150 MEQ in Dextrose 5% in Water 1,000 ML IV SCH (12:37)
[2020-05-19] MEDS ORDERED: GUAIFENESIN SF SOLN 200 MG/10 ML UDCUP PO PRN (15:31)
[2020-05-19] MEDS: HumaLOG 300 UNITS/3 ML VIAL SC PRN (17:37)
[2020-05-19] MEDS: Carvedilol 3.125 MG TAB PO SCH (17:37)
[2020-05-19] MEDS: guaiFENesin ER 600 MG TAB PO SCH (20:42)
[2020-05-20] MEDS: Sodium Bicarbonate 150 MEQ in Dextrose 5% in Water 1,000 ML IV SCH (05:22)
[2020-05-20] MEDS: metroNIDAZOLE 500 MG in Premix Bag 1 BAG IVPB SCH ×2 (05:22→12:38)
[2020-05-20] MEDS: cefTRIAXone\\ROCEPHIN 1 GM in Sodium Chloride 0.9% 100 ML IVPB SCH (05:23)
[2020-05-20] MEDS: Acetaminophen 325 MG TAB PO PRN ×2 (05:26→20:40)
[2020-05-20] MEDS: Morphine 2 MG/ML VIAL SLOW IVP PRN ×6 (05:26→22:27)
[2020-05-20] MEDS: HumaLOG 300 UNITS/3 ML VIAL SC PRN ×3 (05:32→16:55)
[2020-05-20 06:39] LABS: #Lymphocytes 0.3 thou/uL (1.20-3.40); #Monocytes 0.9 thou/uL (0.11-0.59); #Neutrophils 14.3 thou/uL (1.40-6.50); %Lymphocytes 1.9 % (21.0-51.0); %Monocytes 5.8 % (0.0-10.0); %Neutrophils 92.2 % (42.0-75.0); Hemoglobin 9.4 g/dL (14.0-18.0); Mean Corpuscular HGB CONC 32.2 g/dL (32.0-36.0); Mean Corpuscular Hemoglobin 30.3 pg (27.0-31.0); Mean Corpuscular Volume 94.1 fL (78.0-98.0); Mean Platelet Volume 9.9 fL (7.4-10.4); Platelet Count 49 thou/uL (130-400); RBC Distribution Width 16.6 % (11.5-14.5); Red Blood Cell (RBC) Count 3.11 mill/uL (4.70-6.10); White Blood Cell (WBC) Count 15.5 thou/uL (4.8-10.8)
[2020-05-20 06:55] LABS: ALT (SGPT) 29 U/L (8-55); AST (SGOT) 30 U/L (5-34); Alkaline Phosphatase 101 U/L (40-110); Bilirubin, Direct 0.7 mg/dL (0.1-0.3); Bilirubin, Total 0.9 mg/dL (0.2-1.2); Protein, Total 5.5 g/dL (5.8-8.1)
[2020-05-20 06:56] LABS: Anion Gap 15 mmol/L (10-20); BUN (Urea Nitrogen) 81 mg/dL (8.4-25.7); Calc. Creatinine Clearance 35 mL/min (70-130); Calcium 7.9 mg/dL (7.8-10.44); Carbon Dioxide 16 mmol/L (23-31); Chloride 122 mmol/L (98-107); Glucose 272 mg/dL (80-115); Lipase 43 U/L (8-78); Potassium 3.9 mmol/L (3.5-5.1); Sodium 149 mmol/L (136-145)
[2020-05-20] MEDS: Pantoprazole 40 MG VIAL IVP SCH (07:50)
[2020-05-20] MEDS: Fluconazole 100 MG TAB PO SCH (07:50)
[2020-05-20] MEDS: guaiFENesin ER 600 MG TAB PO SCH ×2 (07:50→19:52)
[2020-05-20] MEDS: Carvedilol 3.125 MG TAB PO SCH ×2 (07:51→15:59)
[2020-05-20] MEDS: Pancrelipase DR 12,000 1 CAP PO SCH ×3 (08:29→15:58)
[2020-05-20] MEDS: Dextrose 5% in Water 1,000 ML IV SCH ×2 (08:29→22:24)
[2020-05-20] MEDS: Cefdinir 300 MG CAP PO SCH (19:52)
[2020-05-20] MEDS: Doxycycline 100 MG CAP PO SCH (19:53)
[2020-05-21] MEDS: Morphine 2 MG/ML VIAL SLOW IVP PRN ×7 (01:29→20:41)
[2020-05-21] MEDS: HumaLOG 300 UNITS/3 ML VIAL SC PRN ×3 (05:44→17:19)
[2020-05-21 07:31] LABS: ALT (SGPT) 27 U/L (8-55); AST (SGOT) 28 U/L (5-34); Albumin 1.9 g/dL (3.4-4.8); Alkaline Phosphatase 99 U/L (40-110); Anion Gap 11 mmol/L (10-20); BUN (Urea Nitrogen) 82 mg/dL (8.4-25.7); Bilirubin, Total 0.8 mg/dL (0.2-1.2); Calc. Creatinine Clearance 33 mL/min (70-130); Calcium 8.2 mg/dL (7.8-10.44); Carbon Dioxide 20 mmol/L (23-31); Chloride 118 mmol/L (98-107); Globulin 3.8 g/dL (2.4-3.5); Glucose 292 mg/dL (80-115); Potassium 3.8 mmol/L (3.5-5.1); Protein, Total 5.7 g/dL (5.8-8.1); Sodium 145 mmol/L (136-145)
[2020-05-21] MEDS: Fluconazole 100 MG TAB PO SCH (07:51)
[2020-05-21] MEDS: Pantoprazole 40 MG VIAL IVP SCH (07:51)
[2020-05-21] MEDS: guaiFENesin ER 600 MG TAB PO SCH ×2 (07:51→20:27)
[2020-05-21] MEDS: Cefdinir 300 MG CAP PO SCH ×2 (07:51→20:27)
[2020-05-21] MEDS: Doxycycline 100 MG CAP PO SCH ×2 (07:51→20:27)
[2020-05-21] MEDS: Carvedilol 3.125 MG TAB PO SCH ×2 (07:51→15:54)
[2020-05-21] MEDS: Pancrelipase DR 12,000 1 CAP PO SCH ×3 (08:20→15:54)
[2020-05-21 08:23] LABS: Hemoglobin 9.4 g/dL (14.0-18.0); Mean Corpuscular HGB CONC 31.7 g/dL (32.0-36.0); Mean Corpuscular Hemoglobin 29.9 pg (27.0-31.0); Mean Corpuscular Volume 94.5 fL (78.0-98.0); Mean Platelet Volume 10.1 fL (7.4-10.4); Platelet Count 51 thou/uL (130-400); RBC Distribution Width 16.6 % (11.5-14.5); Red Blood Cell (RBC) Count 3.13 mill/uL (4.70-6.10); White Blood Cell (WBC) Count 14.2 thou/uL (4.8-10.8)
[2020-05-21] MEDS: Dextrose 5% in Water 1,000 ML IV SCH (10:53)
[2020-05-21] MEDS: HumuLIN 70/30 (300 UNITS/3 ML VIAL) SC SCH (20:28)
[2020-05-22] MEDS: Dextrose 5% in Water 1,000 ML IV SCH (00:46)
[2020-05-22] MEDS: Morphine 2 MG/ML VIAL SLOW IVP PRN ×7 (02:38→21:35)
[2020-05-22 06:13] LABS: ALT (SGPT) 21 U/L (8-55); AST (SGOT) 25 U/L (5-34); Albumin 1.8 g/dL (3.4-4.8); Alkaline Phosphatase 108 U/L (40-110); Anion Gap 12 mmol/L (10-20); BUN (Urea Nitrogen) 83 mg/dL (8.4-25.7); Bilirubin, Total 0.9 mg/dL (0.2-1.2); Calc. Creatinine Clearance 32 mL/min (70-130); Calcium 8.4 mg/dL (7.8-10.44); Carbon Dioxide 20 mmol/L (23-31); Chloride 115 mmol/L (98-107); Globulin 3.6 g/dL (2.4-3.5); Glucose 132 mg/dL (80-115); Magnesium 1.8 mg/dL (1.6-2.6); Phosphorus 2.5 mg/dL (2.3-4.7); Potassium 3.5 mmol/L (3.5-5.1); Protein, Total 5.4 g/dL (5.8-8.1); Sodium 143 mmol/L (136-145)
[2020-05-22] MEDS: guaiFENesin ER 600 MG TAB PO SCH ×2 (08:02→20:24)
[2020-05-22] MEDS: Doxycycline 100 MG CAP PO SCH ×2 (08:02→20:24)
[2020-05-22] MEDS: Fluconazole 100 MG TAB PO SCH (08:02)
[2020-05-22] MEDS: Pantoprazole 40 MG VIAL IVP SCH (08:03)
[2020-05-22] MEDS: HumuLIN 70/30 (300 UNITS/3 ML VIAL) SC SCH ×2 (08:03→20:24)
[2020-05-22] MEDS: Cefdinir 300 MG CAP PO SCH ×2 (08:03→20:24)
[2020-05-22] MEDS: Pancrelipase DR 12,000 1 CAP PO SCH ×3 (08:03→15:46)
[2020-05-22] MEDS: Carvedilol 3.125 MG TAB PO SCH ×2 (08:03→15:46)
[2020-05-22] MEDS ORDERED: Amino Acids 4.25 %/Dextrose 5% 2,000 ML BAG IV SCH (09:00)
[2020-05-22] MEDS ORDERED: Sodium Chloride 0.45% 1,000 ML IV SCH (09:30)
[2020-05-22] MEDS ORDERED: Albumin 25% 25 GM/100 ML BOT IVPB SCH (12:00)
[2020-05-22] MEDS: Amino Acids 4.25 %/Dextrose 5% 1,000 ML IV SCH (16:17)
[2020-05-22] MEDS: Acetaminophen 325 MG TAB PO PRN (21:11)
[2020-05-23] MEDS: Amino Acids 4.25 %/Dextrose 5% 1,000 ML IV SCH ×2 (05:24→19:15)
[2020-05-23] MEDS: Morphine 2 MG/ML VIAL SLOW IVP PRN ×3 (05:27→22:05)
[2020-05-23] MEDS: Pantoprazole 40 MG VIAL IVP SCH (08:04)
[2020-05-23] MEDS: Acetaminophen 325 MG TAB PO PRN (08:04)
[2020-05-23] MEDS: Doxycycline 100 MG CAP PO SCH (08:05)
[2020-05-23] MEDS: guaiFENesin ER 600 MG TAB PO SCH ×3 (08:05→20:40)
[2020-05-23] MEDS: Cefdinir 300 MG CAP PO SCH (08:05)
[2020-05-23] MEDS: Fluconazole 100 MG TAB PO SCH (08:05)
[2020-05-23] MEDS: Carvedilol 3.125 MG TAB PO SCH ×2 (08:05→17:02)
[2020-05-23] MEDS: Pancrelipase DR 12,000 1 CAP PO SCH ×3 (08:05→17:02)
[2020-05-23] MEDS: HumuLIN 70/30 (300 UNITS/3 ML VIAL) SC SCH ×2 (08:16→20:32)
[2020-05-23 09:30] LABS: Hemoglobin 8.9 g/dL (14.0-18.0); Mean Corpuscular HGB CONC 31.1 g/dL (32.0-36.0); Mean Corpuscular Hemoglobin 29.5 pg (27.0-31.0); Mean Corpuscular Volume 94.9 fL (78.0-98.0); Mean Platelet Volume 11.7 fL (7.4-10.4); Platelet Count 39 thou/uL (130-400); RBC Distribution Width 16.6 % (11.5-14.5); Red Blood Cell (RBC) Count 3.02 mill/uL (4.70-6.10); White Blood Cell (WBC) Count 16.8 thou/uL (4.8-10.8)
[2020-05-23 09:39] LABS: Anion Gap 10 mmol/L (10-20); BUN (Urea Nitrogen) 84 mg/dL (8.4-25.7); Calc. Creatinine Clearance 37 mL/min (70-130); Calcium 8.5 mg/dL (7.8-10.44); Carbon Dioxide 19 mmol/L (23-31); Chloride 113 mmol/L (98-107); Glucose 157 mg/dL (80-115); Potassium 3.2 mmol/L (3.5-5.1); Sodium 139 mmol/L (136-145)
[2020-05-23] MEDS: HumaLOG 300 UNITS/3 ML VIAL SC PRN (12:25)
[2020-05-23] MEDS: MEROPENEM 1 GM/50 ML 1 GM in Premix Bag 1 BAG IVPB SCH ×2 (14:34→20:26)
[2020-05-23 15:35] LABS: Bilirubin Negative (Negative); Blood, Urine Negative (Negative); Clarity Clear (Clear); Glucose, Urine (Dipstick) Normal (Negative); Ketone, Urine Negative (Negative); Leukocyte 75 Leu/uL (Negative); Nitrite Negative (Negative); Protein, Urine (Dipstick) 20 mg/dL (Neg-Trace); RBC/HPF 0-3 HPF (0-3); Specific Gravity, Urine 1.018 (1.002-1.036); Squamous Epithelial None Seen HPF (0-3); Urobilinogen Normal mg/dL (Less than 2); pH, Urine 5.5 (5.0-9.0)
[2020-05-23 15:36] LABS: Bacteria/HPF Rare-Few HPF (None Seen)
[2020-05-23 15:37] LABS: Urine Culture Reflex Yes Yes
[2020-05-23] MEDS: Fentanyl 100 MCG/2 ML VIAL SLOW IVP PRN ×2 (17:18→20:29)
[2020-05-23 18:06] LABS: Lactic Acid 1.6 mmol/L (0.5-2.2)
[2020-05-23] MEDS ORDERED: Lorazepam 2 MG/ML VIAL SLOW IVP SCH (21:45)
[2020-05-24] MEDS: MEROPENEM 1 GM/50 ML 1 GM in Premix Bag 1 BAG IVPB SCH ×3 (05:22→22:02)
[2020-05-24] MEDS: HumaLOG 300 UNITS/3 ML VIAL SC PRN (05:25)
[2020-05-24] MEDS: Amino Acids 4.25 %/Dextrose 5% 1,000 ML IV SCH ×2 (07:59→22:20)
[2020-05-24 08:06] LABS: Hemoglobin 8.1 g/dL (14.0-18.0); Mean Corpuscular HGB CONC 31.3 g/dL (32.0-36.0); Mean Corpuscular Hemoglobin 28.9 pg (27.0-31.0); Mean Corpuscular Volume 92.2 fL (78.0-98.0); Mean Platelet Volume 10.7 fL (7.4-10.4); Platelet Count 56 thou/uL (130-400); RBC Distribution Width 16.8 % (11.5-14.5); White Blood Cell (WBC) Count 19.7 thou/uL (4.8-10.8)
[2020-05-24] MEDS: Fluconazole 100 MG TAB PO SCH (08:07)
[2020-05-24] MEDS: Pancrelipase DR 12,000 1 CAP PO SCH ×3 (08:07→15:22)
[2020-05-24] MEDS: Carvedilol 3.125 MG TAB PO SCH ×2 (08:07→15:58)
[2020-05-24] MEDS: Pantoprazole 40 MG VIAL IVP SCH (08:07)
[2020-05-24] MEDS: HumuLIN 70/30 (300 UNITS/3 ML VIAL) SC SCH ×3 (08:08→22:10)
[2020-05-24] MEDS: Fluconazole In NaCl,Iso-Osm 200 MG in Premix Bag 1 BAG IVPB SCH (08:08)
[2020-05-24] MEDS: guaiFENesin ER 600 MG TAB PO SCH ×2 (08:08→20:29)
[2020-05-24 08:16] LABS: Anion Gap 10 mmol/L (10-20); BUN (Urea Nitrogen) 84 mg/dL (8.4-25.7); Calc. Creatinine Clearance 41 mL/min (70-130); Calcium 8.7 mg/dL (7.8-10.44); Carbon Dioxide 17 mmol/L (23-31); Chloride 114 mmol/L (98-107); Glucose 172 mg/dL (80-115); Potassium 3.3 mmol/L (3.5-5.1); Sodium 138 mmol/L (136-145)
[2020-05-24] MEDS: Morphine 2 MG/ML VIAL SLOW IVP PRN (09:05)
[2020-05-24] MEDS ORDERED: Potassium Chloride 20 MEQ TAB PO SCH (11:15)
[2020-05-24] MEDS ORDERED: Pantoprazole 80 MG in Sodium Chloride 0.9% 100 ML IVPB SCH (12:08)
[2020-05-24] MEDS ORDERED: Norepinephrine 4 MG/4 ML VIAL ONE (12:21)
[2020-05-24] MEDS: Octreotide Acetate 1,250 MCG in Sodium Chloride 0.9% 250 ML 250 ML IVPB SCH (12:39)
[2020-05-24] MEDS ORDERED: Propofol 1,000 MG/100 ML VIAL IV ONE ×2 (12:59→15:56)
[2020-05-24] MEDS ORDERED: Pantoprazole 80 MG, Admixture Fee 1 EACH in Sodium Chloride 0.9% 100 ML IVPB SCH (13:00)
[2020-05-24] MEDS: Norepinephrine 8 MG/0.9% NS 250 ML IVPB SCH (13:06)
[2020-05-24 13:20] LABS: Hemoglobin 8.1 g/dL (14.0-18.0); Mean Corpuscular HGB CONC 31.8 g/dL (32.0-36.0); Mean Corpuscular Hemoglobin 29.9 pg (27.0-31.0); Mean Corpuscular Volume 93.9 fL (78.0-98.0); Mean Platelet Volume 11.2 fL (7.4-10.4); Platelet Count 40 thou/uL (130-400); RBC Distribution Width 15.3 % (11.5-14.5); Red Blood Cell (RBC) Count 2.71 mill/uL (4.70-6.10); White Blood Cell (WBC) Count 20.9 thou/uL (4.8-10.8)
[2020-05-24 13:30] LABS: ALT (SGPT) 21 U/L (8-55); AST (SGOT) 39 U/L (5-34); Albumin 1.3 g/dL (3.4-4.8); Alkaline Phosphatase 106 U/L (40-110); Anion Gap 13 mmol/L (10-20); BUN (Urea Nitrogen) 82 mg/dL (8.4-25.7); Bilirubin, Total 0.8 mg/dL (0.2-1.2); Calc. Creatinine Clearance 40 mL/min (70-130); Calcium 7.9 mg/dL (7.8-10.44); Carbon Dioxide 15 mmol/L (23-31); Chloride 113 mmol/L (98-107); Globulin 2.6 g/dL (2.4-3.5); Glucose 217 mg/dL (80-115); Potassium 3.9 mmol/L (3.5-5.1); Protein, Total 3.9 g/dL (5.8-8.1); Sodium 137 mmol/L (136-145)
[2020-05-24 13:31] LABS: INR-International Normal Ratio 2.4; PTT 65.1 sec (22.9-36.1); Prothrombin Time 26.5 sec (12.0-14.7)
[2020-05-24 13:37] LABS: Band 40 % (5-11); Burr Cells SLIGHT = 2-5 cells (100X) (0-1/hpf); Large Platelets SLIGHT; Lymphocytes 7 % (21-51); MDiff Complete? YES; Metamyelocyte 2 % (0-0); Monocytes 7 % (0-10); Myelocyte 2 % (0-0); Neutrophil 38 % (42-75); Ovalocytes SLIGHT = 2-5 cells (100X) (0-1/hpf); Platelet Morphology Comment Appears Decreased; Polychromasia SLIGHT = 2-3 cells (100X) (0-2/hpf); Reactive Lymphocytes 4 % (0-10); Schistocytes SLIGHT = 2-5 cells (100X) (0-1/hpf); Tear Drops SLIGHT = 2-5 cells (100X) (0-1/hpf)
[2020-05-24 13:39] LABS: Actual Bicarbonate (HCO3a) 14.8 mEq/L (22-28); Base Excess (BEa) -11.3 mEq/L (-2.0 to +3.0); CO2 Tension 34.2 mmHg (35.0-45.0); Calcium, Ionized (arterial) 1.22 mmol/L (1.12-1.30); Carboxyhemoglobin (COHb) 1.1 gm% (0.0-3.0); Hemoglobin (Hb) 8.1 g/dL (14.0-18.0); O2 Tension (PaO2), arterial 127.2 mmHg (> 80.0); Potassium - ABG Lab 3.32 mmol/L (3.70-5.30); pH, Arterial 7.26 (7.35-7.45)
[2020-05-24 13:40] LABS: Lactic Acid 7.7 mmol/L (0.5-2.2)
[2020-05-24 13:44] LABS: Puncture Site Arterial Line
[2020-05-24] MEDS: Sodium Bicarb 50 MEQ/50 ML Abboject 8.4% SYRINGE ONE (13:55)
[2020-05-24] MEDS: Potassium Chloride 20 MEQ in Premix Bag 1 BAG IVPB SCH ×2 (13:59→14:04)
[2020-05-24] MEDS: Sodium Chloride 0.9% 1,000 ML IV SCH (15:22)
[2020-05-24] MEDS ORDERED: Sodium Chloride 0.9% 1,000 ML IV SCH (15:45)
[2020-05-24] MEDS ORDERED: Fentanyl BOLUS 250 ML IVPB PRN (16:30)
[2020-05-24] MEDS ORDERED: Morphine 2 MG/ML VIAL SLOW IVP PRN (16:30)
[2020-05-24] MEDS ORDERED: DISCONTINUE PREVIOUS NARCOTIC PAIN MEDICATIONS AND BENZODIAZEPINES FS SCH (16:30)
[2020-05-24] MEDS ORDERED: Propofol BOLUS 1,000 MG/100 ML VIAL IV PRN (16:30)
[2020-05-24] MEDS ORDERED: Lorazepam 2 MG/ML VIAL SLOW IVP PRN (16:30)
[2020-05-24] MEDS ORDERED: Fentanyl CADD 100 ML IV SCH (16:30)
[2020-05-24 17:18] LABS: Hemoglobin 7.8 g/dL (14.0-18.0)
[2020-05-24] MEDS ORDERED: Succinylcholine 200 MG/10 ml SYRINGE FS ONE (18:00)
[2020-05-24 21:38] LABS: Lactic Acid 2.6 mmol/L (0.5-2.2)
[2020-05-24] MEDS: Pantoprazole 80 MG, Admixture Fee 1 EACH in Sodium Chloride 0.9% 100 ML IVPB SCH (22:02)
[2020-05-25] MEDS: Octreotide Acetate 1,250 MCG in Sodium Chloride 0.9% 250 ML 250 ML IVPB SCH ×2 (00:46→14:00)
[2020-05-25 05:40] LABS: ALT (SGPT) 18 U/L (8-55); AST (SGOT) 38 U/L (5-34); Albumin 1.6 g/dL (3.4-4.8); Alkaline Phosphatase 76 U/L (40-110); Anion Gap 8 mmol/L (10-20); BUN (Urea Nitrogen) 92 mg/dL (8.4-25.7); Bilirubin, Total 1.1 mg/dL (0.2-1.2); Calc. Creatinine Clearance 39 mL/min (70-130); Calcium 7.9 mg/dL (7.8-10.44); Carbon Dioxide 19 mmol/L (23-31); Chloride 113 mmol/L (98-107); Globulin 2.7 g/dL (2.4-3.5); Glucose 187 mg/dL (80-115); Potassium 3.3 mmol/L (3.5-5.1); Protein, Total 4.3 g/dL (5.8-8.1); Sodium 137 mmol/L (136-145)
[2020-05-25 05:45] LABS: Band 19 % (5-11); Burr Cells SLIGHT = 2-5 cells (100X) (0-1/hpf); Hemoglobin 7.2 g/dL (14.0-18.0); MDiff Complete? YES; Mean Corpuscular HGB CONC 33.8 g/dL (32.0-36.0); Mean Corpuscular Hemoglobin 30.3 pg (27.0-31.0); Mean Corpuscular Volume 89.6 fL (78.0-98.0); Monocytes 6 % (0-10); Neutrophil 75 % (42-75); Platelet Count 45 thou/uL (130-400); Platelet Morphology Comment Appears Decreased; RBC Distribution Width 15.3 % (11.5-14.5); Red Blood Cell (RBC) Count 2.38 mill/uL (4.70-6.10); Schistocytes SLIGHT = 2-5 cells (100X) (0-1/hpf); White Blood Cell (WBC) Count 12.3 thou/uL (4.8-10.8)
[2020-05-25] MEDS: Propofol 1,000 MG/100 ML VIAL IV PRN ×2 (06:07→17:49)
[2020-05-25] MEDS: Sodium Chloride 0.9% 1,000 ML IV SCH ×3 (06:07→21:47)
[2020-05-25] MEDS: MEROPENEM 1 GM/50 ML 1 GM in Premix Bag 1 BAG IVPB SCH ×2 (06:07→18:16)
[2020-05-25] MEDS: HumaLOG 300 UNITS/3 ML VIAL SC PRN ×2 (06:08→10:45)
[2020-05-25] MEDS: Carvedilol 3.125 MG TAB PO SCH ×2 (07:38→16:22)
[2020-05-25] MEDS: Pancrelipase DR 12,000 1 CAP PO SCH ×3 (07:39→16:22)
[2020-05-25] MEDS ORDERED: Potassium Chloride 20 MEQ in Premix Bag 1 BAG IVPB SCH (08:00)
[2020-05-25] MEDS: Fluconazole In NaCl,Iso-Osm 200 MG in Premix Bag 1 BAG IVPB SCH (08:43)
[2020-05-25] MEDS: guaiFENesin ER 600 MG TAB PO SCH ×2 (08:43→21:46)
[2020-05-25] MEDS: HumuLIN 70/30 (300 UNITS/3 ML VIAL) SC SCH ×2 (08:44→22:40)
[2020-05-25] MEDS: Pantoprazole 80 MG, Admixture Fee 1 EACH in Sodium Chloride 0.9% 100 ML IVPB SCH ×2 (09:09→18:30)
[2020-05-25] MEDS: Amino Acids 4.25 %/Dextrose 5% 1,000 ML IV SCH ×2 (10:20→23:49)
[2020-05-25] MEDS: Norepinephrine 8 MG/0.9% NS 250 ML IVPB SCH ×2 (11:54→23:48)
[2020-05-25 14:21] VITALS: BP 152/70
[2020-05-26 05:02] VITALS: TEMP 98
[2020-05-26] MEDS: MEROPENEM 1 GM/50 ML 1 GM in Premix Bag 1 BAG IVPB SCH (05:49)
[2020-05-26] MEDS: Pantoprazole 80 MG, Admixture Fee 1 EACH in Sodium Chloride 0.9% 100 ML IVPB SCH (06:16)
[2020-05-26] MEDS: Propofol 1,000 MG/100 ML VIAL IV PRN (06:45)
[2020-05-26] MEDS: Sodium Chloride 0.9% 1,000 ML IV SCH (06:50)
[2020-05-26] MEDS: Norepinephrine 8 MG/0.9% NS 250 ML IVPB SCH (07:48)
[2020-05-26] MEDS: Pancrelipase DR 12,000 1 CAP PO SCH (07:48)
[2020-05-26] MEDS: Carvedilol 3.125 MG TAB PO SCH (07:48)
[2020-05-26] MEDS: Fluconazole In NaCl,Iso-Osm 200 MG in Premix Bag 1 BAG IVPB SCH (08:18)
[2020-05-26] MEDS: guaiFENesin ER 600 MG TAB PO SCH (08:18)
[2020-05-26] MEDS: HumuLIN 70/30 (300 UNITS/3 ML VIAL) SC SCH (08:18)
[2020-05-26] MEDS ORDERED: Morphine CADD 100 ML IVPB SCH (08:45)
== END 2020-05-26 08:52 | disposition expired | DRG 438 ==
LOC: ERS 22:33 → ERHOLD 05-17 02:12 → 2NO 05-17 16:36 → T4-A 05-19 20:31 → CCU 05-24 12:12
PROVIDERS: ADMIT Internal Medicine; ATTEND Internal Medicine
PROC: 0DJ08ZZ Inspection of Upper Intestinal Tract, Via Natural or Artificial Opening Endoscopic (ICD-10-PCS; principal; 2020-05-19)
PROC: 5A1945Z Respiratory Ventilation, 24-96 Consecutive Hours (ICD-10-PCS; 2020-05-24)
PROC: 0BH17EZ Insertion of Endotracheal Airway into Trachea, Via Natural or Artificial Opening (ICD-10-PCS; 2020-05-24)
PROC: 30233L1 Transfusion of Nonautologous Fresh Plasma into Peripheral Vein, Percutaneous Approach (ICD-10-PCS; 2020-05-24)
PROC: 30233N1 Transfusion of Nonautologous Red Blood Cells into Peripheral Vein, Percutaneous Approach (ICD-10-PCS; 2020-05-24)
PROC: 30233K1 Transfusion of Nonautologous Frozen Plasma into Peripheral Vein, Percutaneous Approach (ICD-10-PCS; 2020-05-24)
PROC: 3E033XZ Introduction of Vasopressor into Peripheral Vein, Percutaneous Approach (ICD-10-PCS; 2020-05-24)
PROC: 03HY32Z Insertion of Monitoring Device into Upper Artery, Percutaneous Approach (ICD-10-PCS; 2020-05-24)
PROC: 4A133B1 Monitoring of Arterial Pressure, Peripheral, Percutaneous Approach (ICD-10-PCS; 2020-05-24)
PROC: 4A133J1 Monitoring of Arterial Pulse, Peripheral, Percutaneous Approach (ICD-10-PCS; 2020-05-24)
DX: K85.90 Acute pancreatitis without necrosis or infection, unspecified (principal); I81 Portal vein thrombosis; J69.0 Pneumonitis due to inhalation of food and vomit; K55.019 Acute (reversible) ischemia of small intestine, extent unspecified; J96.00 Acute respiratory failure, unspecified whether with hypoxia or hypercapnia; K29.61 Other gastritis with bleeding; K63.1 Perforation of intestine (nontraumatic); B37.81 Candidal esophagitis; I82.891 Chronic embolism and thrombosis of other specified veins; N17.9 Acute kidney failure, unspecified; E44.0 Moderate protein-calorie malnutrition; I13.0 Hypertensive heart and chronic kidney disease with heart failure and stage 1 through stage 4 chronic kidney disease, or unspecified chronic kidney disease; I50.22 Chronic systolic (congestive) heart failure; I42.9 Cardiomyopathy, unspecified; R18.8 Other ascites; K76.6 Portal hypertension; N39.0 Urinary tract infection, site not specified; E87.0 Hyperosmolality and hypernatremia; E87.2 Acidosis; D62 Acute posthemorrhagic anemia; D68.9 Coagulation defect, unspecified; Z51.5 Encounter for palliative care; R57.8 Other shock; K72.90 Hepatic failure, unspecified without coma; D73.5 Infarction of spleen; D63.1 Anemia in chronic kidney disease; K74.60 Unspecified cirrhosis of liver; E11.22 Type 2 diabetes mellitus with diabetic chronic kidney disease; E11.42 Type 2 diabetes mellitus with diabetic polyneuropathy; D69.59 Other secondary thrombocytopenia; Z20.822 Contact with and (suspected) exposure to COVID-19; I25.10 Atherosclerotic heart disease of native coronary artery without angina pectoris; N18.30 Chronic kidney disease, stage 3 unspecified; K21.9 Gastro-esophageal reflux disease without esophagitis; K52.9 Noninfective gastroenteritis and colitis, unspecified; K86.81 Exocrine pancreatic insufficiency; I86.8 Varicose veins of other specified sites; K86.1 Other chronic pancreatitis; I46.9 Cardiac arrest, cause unspecified; E87.6 Hypokalemia; E86.0 Dehydration; K31.89 Other diseases of stomach and duodenum; Z66 Do not resuscitate; Z79.01 Long term (current) use of anticoagulants; Z68.20 Body mass index [BMI] 20.0-20.9, adult; Z79.4 Long term (current) use of insulin; Z79.899 Other long term (current) drug therapy; Z87.891 Personal history of nicotine dependence; Z78.1 Physical restraint status
CPT/HCPCS: 36415; 36416; 36430; 71045; 74018; 74176; 74177; 76705; 80048; 80053; 80076; 81001; 81003; 81015; 82553; 82805; 83540; 83550; 83605; 83690; 83735; 84100; 84134; 84484; 85025; 85027; 85610; 85730; 86850; 86900; 86901; 87077; 87086; 87186; 87635; 93005; 94002; 94003; 96374; 96375; C9113; J0696; J1450; J1815; J2060; J2185; J2270; J2354; J2405; J2704; J3010; J3480; J3490; J7050; J7070; P9016; P9047; P9048; Q9967; U0003; U0005